=== PATIENT | male | born 1980 | race Caucasian/White ===

== ENCOUNTER → 2018-02-18 15:53 | Outpatient (CLI) | payer SELFPAY ==
[2018-02-18 17:23] LABS: Absolute Lymphocyte Count 1.87 X10^3/ul (0.83-4.51); Absolute Neutrophil Count 5.8 X10^3/uL (2.0-7.7); Basophil# 0.03 X10^3/uL; Basophil% 0.3 % (0-1); Eosinophil# 0.25 X10^3/uL; Eosinophils% 2.8 % (0-5); Hematocrit 40.3 % (40-54); Hemoglobin 13.7 g/dl (13.0-16.5); Lymphocyte # 1.87 X10^3/ul (4.0); Lymphocyte % 20.7 % (19-41); Mean Corpuscular Hgb 31.9 pg (27.0-32.0); Mean Corpuscular Volume 93.7 fL (80-94); Mean Platelet Vol. 9.2 fl (6.2-12.0); Monocyte# 1.04 X10^3/uL; Monocyte% 11.5 % (0-10); Neutrophil # 5.83 X10^3/uL (2.7-7.7); Neutrophil % 64.7 % (47-70); Platelet Count 286 K/mm3 (150-450); RBC Distribution Width CV 12.4 % (11.6-14.6)
[2018-02-18 17:28] LABS: POSITIVE COUNT NO; POSITIVE DIFFERENTIAL NO; POSITIVE MORPHOLOGY NO
[2018-02-18 17:31] LABS: AST(SGOT) 19 U/L (15-37); Alanine Aminotransfer ALT/SGPT 26 U/L (16-61); Albumin, Serum 3.9 g/dL (3.2-5.0); Alkaline Phosphatase 68 U/L (45-117); Bilirubin, Direct 0.22 mg/dL (0.00-0.30); Cholesterol 158 mg/dL (200); Globulin 3.1 g/dL (2.2-4.2); Glucose 90 mg/dL (74-106); High Density Lipoprotein 33 mg/dL; Triglycerides 133 mg/dL; Very Low Density Lipoprotein 27 mg/dL (5-40)
[2018-02-19 09:10] LABS: Anion Gap 9 (5-15); BUN 18 mg/dL (7-18); BUN/Creat Ratio 15.4 RATIO (10-20); Calcium,Total 8.5 mg/dL (8.5-10.1); Chloride 107 mmol/L (98-107); Creatinine, Serum 1.17 mg/dL (0.70-1.30); EST Glomerular Filtration Rate 75 mL/min (>60); Est Glom Filt Rate - Afr Amer 91 mL/min (>60); Potassium 3.8 mmol/L (3.5-5.1); Sodium Level 141 mmol/L (136-145)
[2018-02-20 16:11] LABS: Absolute CD4 Helper 609 /uL (359-1519); Basophils (Absolute) 0 x10E3/uL (0.0-0.2); Eosinophils 3 % (Not Estab.); Eosinophils (Absolute) 0.3 x10E3/uL (0.0-0.4); Hematocrit 41.6 % (37.5-51.0); Hemoglobin 13.8 g/dL (13.0-17.7); Immature Granulocytes 0 % (Not Estab.); Lymphs 22 % (Not Estab.); Lymphs (Absolute) 2.1 x10E3/uL (0.7-3.1); MCHC 33.2 g/dL (31.5-35.7); MCV 97 fL (79-97); Monocytes 11 % (Not Estab.); Monocytes (Absolute) 1.1 x10E3/uL (0.1-0.9); Neutrophils 64 % (Not Estab.); Neutrophils (Absolute) 6.3 x10E3/uL (1.4-7.0); Platelets 305 x10E3/uL (150-379); RBC Count 4.31 x10E6/uL (4.14-5.80); RDW 13.2 % (12.3-15.4); WBC Count 9.8 x10E3/uL (3.4-10.8)
[2018-02-21 11:20] LABS: Immature Granulocytes Absolute 0 x10E3/uL (0.0-0.1)
[2018-02-23 07:58] LABS: HIV-1 RNA by PCR, Quant. < 20 copies/mL (.)
== END ==
PROVIDERS: Family Provider Internal Medicine Infectious Disease; PCP Internal Medicine Infectious Disease; Visit Provider Internal Medicine Infectious Disease
DX: B20 Human immunodeficiency virus [HIV] disease (principal)
CPT/HCPCS: 36415; 80048; 80061; 80076; 82947; 85025; 86361; 87536

== ENCOUNTER → 2018-08-18 11:49 | Outpatient (CLI) | payer OTHER, SELFPAY ==
[2018-08-18 14:47] LABS: Hematocrit 43.2 % (40-54); Hemoglobin 14.4 g/dl (13.0-16.5); Mean Corp Hgb Conc 33.3 g/gl (32-36); Mean Corpuscular Hgb 31.8 pg (27.0-32.0); Mean Corpuscular Volume 95.4 fL (80-94); Mean Platelet Vol. 9.2 fl (6.2-12.0); Platelet Count 335 K/mm3 (150-450); RBC Distribution Width CV 12.7 % (11.6-14.6); RBC Distribution Width SD 42.9 fl (35.1-43.9); Red Blood Count 4.53 M/mm3 (4.6-6.2); White Blood Count 7.4 K/mm3 (4.4-11.0)
[2018-08-18 14:50] LABS: Scan Indicated on CBC? Y/N NO
[2018-08-18 15:43] LABS: AST(SGOT) 15 U/L (15-37); Alanine Aminotransfer ALT/SGPT 31 U/L (16-61); Albumin, Serum 4.4 g/dL (3.2-5.0); Alkaline Phosphatase 65 U/L (45-117); Anion Gap 4 (5-15); BUN 12 mg/dL (7-18); Bilirubin, Direct 0.19 mg/dL (0.00-0.30); Calcium,Total 8.9 mg/dL (8.5-10.1); Chloride 107 mmol/L (98-107); EST Glomerular Filtration Rate 90 mL/min (>60); Est Glom Filt Rate - Afr Amer 108 mL/min (>60); Globulin 3.6 g/dL (2.2-4.2); Glucose 88 mg/dL (74-106); Potassium 4.1 mmol/L (3.5-5.1); Sodium Level 140 mmol/L (136-145)
[2018-08-19 16:10] LABS: Absolute CD4 Helper 643 /uL (359-1519); Basophils (Absolute) 0 x10E3/uL (0.0-0.2); Eosinophils 2 % (Not Estab.); Eosinophils (Absolute) 0.2 x10E3/uL (0.0-0.4); Hematocrit 41.2 % (37.5-51.0); Hemoglobin 14.8 g/dL (13.0-17.7); Immature Granulocytes 0 % (Not Estab.); Immature Granulocytes Absolute 0 x10E3/uL (0.0-0.1); Lymphs 28 % (Not Estab.); Lymphs (Absolute) 2.4 x10E3/uL (0.7-3.1); MCH 32.5 pg (26.6-33.0); MCHC 35.9 g/dL (31.5-35.7); MCV 90 fL (79-97); Monocytes 12 % (Not Estab.); Neutrophils 57 % (Not Estab.); Neutrophils (Absolute) 4.8 x10E3/uL (1.4-7.0); Percent % CD4 Pos. Lymph. 26.8 % (30.8-58.5); Platelets 344 x10E3/uL (150-379); RBC Count 4.56 x10E6/uL (4.14-5.80); RDW 13.8 % (12.3-15.4); WBC Count 8.4 x10E3/uL (3.4-10.8)
[2018-08-19 16:29] LABS: Hep C Antibodies <0.1 s/co ratio (0.0-0.9)
[2018-08-20 12:42] LABS: HIV-1 RNA by PCR, Quant. < 20 copies/mL (.)
[2018-08-26 13:58] LABS: Rapid Plasmin Reagin (RPR) REACTIVE (NONREACTIVE)
== END ==
PROVIDERS: Family Provider Internal Medicine Infectious Disease; PCP Internal Medicine Infectious Disease; Referring Provider Internal Medicine Infectious Disease; Visit Provider Internal Medicine Infectious Disease
DX: B20 Human immunodeficiency virus [HIV] disease (principal)
CPT/HCPCS: 36415; 80048; 80076; 85027; 86361; 86592; 86803; 87536

== ENCOUNTER → 2018-09-08 13:44 | Outpatient (CLI) | payer OTHER, SELFPAY ==
[2018-09-08 13:59] LABS: Bacteria 0 SEEN /hpf (None Seen); Mucous, Urine 0 SEEN /hpf (<or=2+); Red Blood Cells-Urine 0 SEEN /hpf (0-5); Squamous Epithelial Cells - UA 0 SEEN /hpf (0-5); White Blood Cells 0 SEEN /hpf (0-5)
[2018-09-08 16:00] LABS: Color, Urine Yellow (Yellow); Glucose, Dipstick Normal (Normal); Ketone-Dipstick Negative (Negative); Leukocyte Esterase-Dipstick Negative /ul (Negative); Nitrite-Dipstick Negative (Negative); Occult Blood-Urine Negative /ul (Negative); Protein-Dipstick Negative (Negative); Specific Gravity, Urine 1.005 (1.002-1.030); Urine Bilirubin Dipstick Negative (Negative); Urine Clarity Clear (Clear); Urine Urobilinogen Normal (Normal); Urine pH 6.5 (5.0 - 8.0)
[2018-09-08 17:25] LABS: Chlamydia Trachomatis by PCR Negative (Negative); Neisserai gonorrhoeae by PCR Negative (Negative); Probe Check PASS; Sample Adequacy Control PASS; Specimen Processing Control PASS
[2018-09-10 10:17] LABS: Hep B Surface Antibodies Non Reactive (.)
[2018-09-12 01:31] LABS: Rapid Plasmin Reagin (RPR) NONREACTIVE (NONREACTIVE)
== END ==
PROVIDERS: Family Provider Internal Medicine Infectious Disease; PCP Internal Medicine Infectious Disease; Referring Provider Internal Medicine Infectious Disease; Visit Provider Internal Medicine Infectious Disease
DX: B20 Human immunodeficiency virus [HIV] disease (principal)
CPT/HCPCS: 36415; 81001; 86592; 86706; 87491; 87591

== ENCOUNTER → 2019-02-17 14:40 | Outpatient (CLI) | payer OTHER, SELFPAY ==
[2019-02-17 15:22] LABS: Hematocrit 39.5 % (40-54); Hemoglobin 13.3 g/dL (13.0-16.5); Mean Corp Hgb Conc 33.7 g/dL (32-36); Mean Corpuscular Volume 95.2 fL (80-94); Mean Platelet Vol. 8.4 fl (6.2-12.0); Platelet Count 361 K/mm3 (150-450); RBC Distribution Width CV 11.9 % (11.6-14.6); RBC Distribution Width SD 42.1 fl (35.1-43.9); Red Blood Count 4.15 M/mm3 (4.6-6.2); White Blood Count 8.1 K/mm3 (4.4-11.0)
[2019-02-17 15:42] LABS: AST(SGOT) 13 U/L (15-37); Alanine Aminotransfer ALT/SGPT 24 U/L (16-61); Alkaline Phosphatase 68 U/L (45-117); Anion Gap 6 (5-15); BUN 19 mg/dL (7-18); BUN/Creat Ratio 18.6 RATIO (10-20); Bilirubin, Direct 0.14 mg/dL (0.00-0.30); Calcium,Total 8.4 mg/dL (8.5-10.1); Chloride 106 mmol/L (98-107); Cholesterol 167 mg/dL (200); Creatinine, Serum 1.02 mg/dL (0.70-1.30); EST Glomerular Filtration Rate 87 mL/min (>60); Est Glom Filt Rate - Afr Amer 105 mL/min (>60); Glucose 94 mg/dL (74-106); High Density Lipoprotein 49 mg/dL; Sodium Level 139 mmol/L (136-145); Triglycerides 102 mg/dL; Very Low Density Lipoprotein 20 mg/dL (5-40)
[2019-02-18 14:08] LABS: Absolute CD4 Helper 728 /uL (359-1519); Basophils (Absolute) 0 x10E3/uL (0.0-0.2); Eosinophils 3 % (Not Estab.); Eosinophils (Absolute) 0.3 x10E3/uL (0.0-0.4); Hematocrit 37.4 % (37.5-51.0); Hemoglobin 13.2 g/dL (13.0-17.7); Immature Granulocytes 0 % (Not Estab.); Lymphs 27 % (Not Estab.); Lymphs (Absolute) 2.2 x10E3/uL (0.7-3.1); MCH 31.7 pg (26.6-33.0); MCHC 35.3 g/dL (31.5-35.7); MCV 90 fL (79-97); Monocytes 10 % (Not Estab.); Monocytes (Absolute) 0.8 x10E3/uL (0.1-0.9); Neutrophils 60 % (Not Estab.); Neutrophils (Absolute) 4.8 x10E3/uL (1.4-7.0); Percent % CD4 Pos. Lymph. 33.1 % (30.8-58.5); Platelets 389 x10E3/uL (150-450); RBC Count 4.17 x10E6/uL (4.14-5.80)
[2019-02-18 15:02] LABS: Immature Granulocytes Absolute 0 x10E3/uL (0.0-0.1)
[2019-02-20 01:35] LABS: Rapid Plasmin Reagin (RPR) REACTIVE (NONREACTIVE)
[2019-02-20 13:28] LABS: HIV-1 RNA by PCR, Quant. < 20 copies/mL (.)
== END ==
PROVIDERS: Family Provider Internal Medicine Infectious Disease; PCP Internal Medicine Infectious Disease; Referring Provider Internal Medicine Infectious Disease; Visit Provider Internal Medicine Infectious Disease
DX: B20 Human immunodeficiency virus [HIV] disease (principal)
CPT/HCPCS: 36415; 80048; 80061; 80076; 85027; 86361; 86592; 87536

== ENCOUNTER → 2019-08-17 | Outpatient (CLI) | payer OTHER, SELFPAY ==
[2019-08-17 16:33] LABS: Hematocrit 40.7 % (40-54); Hemoglobin 13.5 g/dL (13.0-16.5); Mean Corp Hgb Conc 33.2 g/dL (32-36); Mean Corpuscular Hgb 32.1 pg (27.0-32.0); Mean Corpuscular Volume 96.9 fL (80-94); Mean Platelet Vol. 8.4 fl (6.2-12.0); Platelet Count 412 K/mm3 (150-450); RBC Distribution Width CV 12.4 % (11.6-14.6); White Blood Count 8.4 K/mm3 (4.4-11.0)
[2019-08-17 17:05] LABS: Anion Gap 3 (5-15); BUN 19 mg/dL (7-18); BUN/Creat Ratio 18.8 RATIO (10-20); Chloride 107 mmol/L (98-107); Creatinine, Serum 1.01 mg/dL (0.70-1.30); EST Glomerular Filtration Rate 88 mL/min (>60); Est Glom Filt Rate - Afr Amer 106 mL/min (>60); Glucose 90 mg/dL (74-106); Potassium 4.2 mmol/L (3.5-5.1); Sodium Level 142 mmol/L (136-145)
[2019-08-17 19:36] LABS: Chlamydia Trachomatis by PCR Negative (Negative); Neisserai gonorrhoeae by PCR Negative (Negative); Probe Check PASS; Sample Adequacy Control PASS; Specimen Processing Control PASS
[2019-08-19 14:55] LABS: Absolute CD4 Helper 534 /uL (359-1519); Basophils (Absolute) 0 x10E3/uL (0.0-0.2); CD4/CD8 Ratio 0.94 (0.92-3.72); Eosinophils 4 % (Not Estab.); Eosinophils (Absolute) 0.3 x10E3/uL (0.0-0.4); Hematocrit 41.4 % (37.5-51.0); Hemoglobin 13.7 g/dL (13.0-17.7); Immature Granulocytes 0 % (Not Estab.); Lymphs 20 % (Not Estab.); Lymphs (Absolute) 1.6 x10E3/uL (0.7-3.1); MCH 32.3 pg (26.6-33.0); MCHC 33.1 g/dL (31.5-35.7); MCV 98 fL (79-97); Monocytes 9 % (Not Estab.); Monocytes (Absolute) 0.7 x10E3/uL (0.1-0.9); Neutrophils 66 % (Not Estab.); Neutrophils (Absolute) 5.3 x10E3/uL (1.4-7.0); Percent % CD4 Pos. Lymph. 33.4 % (30.8-58.5); Percent % CD8 Pos. Lymph. 35.6 % (12.0-35.5); Platelets 457 x10E3/uL (150-450); RBC Count 4.24 x10E6/uL (4.14-5.80); RDW 13.4 % (11.6-15.4)
[2019-08-19 16:53] LABS: Immature Granulocytes Absolute 0 x10E3/uL (0.0-0.1)
[2019-08-21 11:15] LABS: HIV-1 RNA by PCR, Quant. < 20 copies/mL (.)
== END | disposition home or self-care (01) ==
LOC: LAB 15:35
PROVIDERS: PCP Internal Medicine Infectious Disease; Referring Provider Internal Medicine Infectious Disease; Visit Provider Internal Medicine Infectious Disease
DX: B20 Human immunodeficiency virus [HIV] disease (principal)
CPT/HCPCS: 36415; 80048; 85027; 86360; 87491; 87536; 87591

== ENCOUNTER 2019-09-16 07:56 | Emergency (ER) | payer OTHER, SELFPAY ==
[2019-09-16] VITALS (8 sets, daily range): BP systolic 110–123; BP diastolic 76–79; PULSE 64–74; RESP 14–16; TEMP 36.4–37.2; O2SAT 97–100; BMI 22.3
--- NOTE | 2019-09-16 08:18 | ED.DCSUM_ITS ---
- ER Visit Summary Date of Service: 09/16/19 Chief Complaint: Suicidal ideation History of Present Illness: The patient is a 39 M with suicidal ideation. He was brought in by police. He left a suicide note for his . Per police, the said they had been dealing with some marital difficulties, but the patient is refusing to get help. Patient says he feels depressed. He drank a bottle of wine and took 2 Benadryl yesterday. No other attempts to harm himself. He has a history of HIV, but no history of AIDS. His CD4 count is normal and his viral load is undetectable. He is compliant with his medical therapy. He denies any other medical complaints or ongoing issues. Physical Examination: Afebrile and vital signs unremarkable. Depressed mood and flat affect. Tearful. HEENT exam unremarkable. Heart regular. Lungs clear. Abdomen soft. Skin normal. Test Results: CBC, CMP, tox screen, alcohol, acetaminophen, salicylates pending. Emergency Department Course and Treatment: Patient had suicide precautions. [place] slip was completed by police. Will check screening labs and consult with crisis counseling. CBC unremarkable. CMP shows a total bilirubin of 1.1. His normal ranges from 0.7-1.0. Acetaminophen and salicylates are negative. Tox screen is positive for opiates only. Alcohol is negative. Patient is medically cleared and stable for psychiatric care and transfer. Treatment Plan: As above Disposition: Pending crisis evaluation Impression: Suicidal ideation This note was generated with [employer] dictation software. It may contain incorrect words, spelling, and punctuation that were not noted in review of the chart prior to signing ED Disposition - Plan for ED Patient: Referrals: Isidro Koenig MD [Primary Care Provider] -
--- NOTE | 2019-09-16 08:31 | ED.RN ---
pt tearful but cooperative.
[2019-09-16 09:11] LABS: Absolute Lymphocyte Count 1.73 X10^3/uL (0.83-4.51); Absolute Neutrophil Count 3.9 X10^3/uL (2.0-7.7); Basophil# 0.06 X10^3/uL; Basophil% 0.9 % (0-1); Eosinophil# 0.21 X10^3/uL; Eosinophils% 3.1 % (0-5); Hematocrit 41.3 % (40-54); Hemoglobin 13.8 g/dL (13.0-16.5); Lymphocyte # 1.73 X10^3/ul (4.0); Lymphocyte % 25.9 % (19-41); Mean Corp Hgb Conc 33.4 g/dL (32-36); Mean Corpuscular Hgb 32.2 pg (27.0-32.0); Mean Corpuscular Volume 96.3 fL (80-94); Mean Platelet Vol. 8.4 fl (6.2-12.0); Monocyte# 0.75 X10^3/uL; Monocyte% 11.2 % (0-10); NRBC Flagged by Analyzer 0 % (0-5); Neutrophil # 3.91 X10^3/uL (2.7-7.7); Neutrophil % 58.6 % (47-70); Platelet Count 405 K/mm3 (150-450); RBC Distribution Width SD 42.2 fl (35.1-43.9); Red Blood Count 4.29 M/mm3 (4.6-6.2); White Blood Count 6.7 K/mm3 (4.4-11.0)
[2019-09-16 09:27] LABS: ALB/GLOB Ratio 1.2 RATIO (0.9-2.4); AST(SGOT) 13 U/L (15-37); Alanine Aminotransfer ALT/SGPT 20 U/L (16-61); Alkaline Phosphatase 66 U/L (45-117); Anion Gap 4 (5-15); BUN 15 mg/dL (7-18); BUN/Creat Ratio 15.1 RATIO (10-20); Calcium,Total 8.6 mg/dL (8.5-10.1); Chloride 107 mmol/L (98-107); Creatinine, Serum 0.99 mg/dL (0.70-1.30); EST Glomerular Filtration Rate 90 mL/min (>60); Est Glom Filt Rate - Afr Amer 108 mL/min (>60); Estimated Creatinine Clearance 103.85 ml/min; Globulin 3.3 g/dL (2.2-4.2); Glucose 96 mg/dL (74-106); Potassium 3.9 mmol/L (3.5-5.1); Protein, Total 7.3 g/dL (6.4-8.2); Sodium Level 141 mmol/L (136-145)
[2019-09-16 09:47] LABS: Acetaminophen (Tylenol) Level < 2.0 ug/mL (10.0-30.0); Alcohol, Blood (Medical)-Serum < 3.0 mg/dL; Salicylate < 1.7 mg/dL (2.8-20.0)
[2019-09-16 09:53] LABS: Amphetamine Urine VISTA NEGATIVE (<1000 ng/mL); Barbiturate Urine VISTA NEGATIVE (< 200 ng/mL); Benzodiazepine Urine VISTA NEGATIVE (< 200 ng/mL); Cocaine Urine VISTA NEGATIVE (< 300 ng/mL); Ecstacy Urine VISTA NEGATIVE (< 500 ng/mL); Methadone Urine VISTA NEGATIVE (< 300 ng/mL); PCP Urine VISTA NEGATIVE (< 25 ng/mL); THC Urine VISTA NEGATIVE (< 50 ng/mL); Vista UDS pH Range 7
--- NOTE | 2019-09-16 13:25 | CM.ED ---
Social Work Consult: Suicidal Informant: Dr. Dugan Chief Complaint: Patient stating I don't want to be here. This rn social services clarifying that here is no longer living. Patient was pink slipped to the [facility] ED by Lyssa MCDANIEL. Marital/Social History: to Abhay for the past three years. Patient originally born and raised in [facility] and lived in [place] from [id number]. Patient moved to [place] after meeting Abhay on-line in 2016. Living Situation: Currently living with Abhay. Support/Resource: Limited. Education and Employment History: Completed collage in [place]. No concerns with comprehension or understanding. 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 Mental Health Treatment/History: Patient stating to have a history of depression. Patient with a history of medication and counseling to managing mental health treatment, patient is currently not in any counseling and not taking any medication. Patient denies any history of inpatient psychiatric placement. Triggers/Stressors: Patient stating that patient spouse, Abhay recently told patient about 3 weeks ago that Abhay will be working towards patient. Patient stating to care for Abhay and want things to work out. Patient stating to not be sure if the divorce process has started. Coping Skills: Patient stating to use to enjoy coloring. Abuse Issues: Denies Substance Abuse: Denies Risk to Self/Others: Patient stating to have had suicidal thoughts for the pasta few days and to have acted on patient suicidal thought last night by taking some Benadryl and drinking a few glasses of wine. Patient also completed a suicide note in which patient informed Abhay that I am making things easier on everyone. Patient denies any homicidal thoughts or history of suicide attempts. Mental Status Exam: A&Ox3 Appearance/General Behavior: Disheveled. Mood/Affect: Tearful. Depressed. Communication Pattern: Responds to questions. Thought Process: Denies any hallucinations or delusions. General Intellectual Functioning: Average. Judgement: Poor. Assessment: Met with patient in room. Introduced self as well as rn social services role. Patient stating it has been rough. Patient tearful when speaking with this rn social services. Patient stating to have no family or friends in the states outside of spouse, Abhay. Patient stating to speak with family from home in [facility] once a week. Patient is agreeable to this rn social services speaking with patient spouse. Met with Abhay. Abhay stating that patient has been presenting with mood swings and is easily agitated. Abhay stating to not know what to do. Abhay is also tearful and stating I do care about him. Abhay stating that patient was planning to return to home on [place] and to not be sure what patient plans are in this regards. Abhay stating he needs help. Abhay stating to have called the police when Abhay found patient acting odd and the suicide note. Collaborating with Dr. Dugan. Recommending inpatient psychiatric placement. PLAN: Facilitate transfer to an inpatient psychiatric placement. Lesvia RICE, TIGIST.
--- NOTE | 2019-09-16 14:23 | CM.ED ---
Social Work Telephone call to [facility]. Referral made. There are open beds. Clinical information faxed. Pending approval. Lesvia RICE, TIGIST
--- NOTE | 2019-09-16 16:15 | CM.ED ---
Social Work Telephone call from [facility]. Octavia wondering if patient would be able to bring home HIV medications. Speaking with patient in room, patient stating to not have HIV medication with patient at this time. Patient agreeable to this social science manager calling patient spouse, Abhay Telephone call to Abhay Blank stating to be able to bring in medication. Updated medical team. Lesvia Gregg MSW, TIGIST
--- NOTE | 2019-09-16 16:17 | CM.ED ---
Social Work Telephone call to [facility]. Confirming that patient significant other is bringing in medication. Octavia stating to be able to accept patient. Accepting Doctor: Dr. Clark. Patient accepted to the [address]. Nurse to call report to: [phone]. Updated medical team and patient. Patient spouse updated on discharge location for patient. [place] [facility] faxed to [facility]. Lesvia Gregg MSW, TIGIST
--- NOTE | 2019-09-17 11:44 | CM.ED ---
SOCIAL WORK RECEIVED CALL FROM PATIENT'S SPOUSE REQUESTING UPDATE ON PATIENT. REVIEWED NOTES. SPOUSE UPDATED PATIENT DISCHARGED TO [facility]. SPOUSE PROVIDED WITH CONTACT INFORMATION FOR FACILITY. Nimco THEODORE MSW, REGISTERED NURSE BONE MARROW TRANSPLANT.
== END 2019-09-16 17:51 ==
LOC: ED 08:49
PROVIDERS: Emergency Provider Emergency Medicine; PCP Internal Medicine Infectious Disease
DX: R45.851 Suicidal ideations (principal); Z21 Asymptomatic human immunodeficiency virus [HIV] infection status; Z79.899 Other long term (current) drug therapy
CPT/HCPCS: 80053; 80307; 80320; 80329; 85025; 99284; G0480

== ENCOUNTER 2019-09-28 09:00 | Outpatient (RCR) | payer OTHER, SELFPAY ==
[2019-09-16 07:57] VITALS: BMI 22.3
--- NOTE | 2019-09-28 09:05 | BH.SGPN.GN ---
Behaviors/Verbalizations/Mental Status: []Eye contact is good. Motor activity is appropriate. Appearance is neat. Speech is Appropriate. Mood is euthymic and anxious. Affect is congruent. Thoughts are linear and logical. No evidence of psychosis. Reviewed daily check in sheet and no reports of suicidal ideations or intent. Client Response/Progress/Benefit: []Client responded well to session, receptive to supportive statements. Client reports feeling relaxed today. Client's first day in IOP tx and client shared that he came to IOP following a recent hospitalization. Client reported numerous stressors including from his , being laid off work, and COVID-19. Client shared he is hopeful about being in IOP and wants to learn healthy coping skills to manage anxiety, anger, and depression. Client stated he has been feeling down and wants to better manage stress in his life. 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 Will continue IOP tx to prevent decompensation, learn healthy coping skills, and reduce intensity and duration of symptoms. Narrative Note: []
--- NOTE | 2019-09-28 10:08 | BH.SGPN.GN ---
Behaviors/Verbalizations/Mental Status: []Client alert and oriented, casually dressed and groomed, neat. Eye contact good. Motor activity appropriate. Speech within normal limits. Affect congruent, mood anxious and dysthymic. Thoughts linear, logical, no signs of hallucinations or delusions. Client Response/Progress/Benefit: []Pt receptive to session, participating throughout. Provided input as the group brainstormed the positive and negative aspects of stress on physical and mental health. Group noted that distress can cause physical health impacts, result in increased negative thinking, lead to further avoidance, and impact emotion regulation. Shared benefits of stress as: increased motivation, improved resilience, improved self-esteem, and personal growth. Client?s current stressors included; work, the end of his relationship, his mental health, finances, and the current COVID-19 pandemic. Client reports belief that his stress jar is torres than it needs to be due to client struggling with unnecessary or preventable stressors. Client stated when stress is too high client will become irritable or more depressed. Appeared to benefit from gaining awareness of own current stressors and learning about the impact stress has on overall wellbeing. Progress noted as shown by client?s increased engagement in group. Recommend continued IOP tx to promote use of healthy coping skills, maintain stability, and to further reduce mental health symptoms. Narrative Note: []
--- NOTE | 2019-09-28 11:10 | BH.SGPN.GN ---
Behaviors/Verbalizations/Mental Status: []Client alert and oriented, casually dressed and groomed. Eye contact good. Motor activity appropriate. Speech within normal limits. Affect constricted, mood dysthymic. Thoughts linear, logical, no signs of hallucinations or delusions. Client Response/Progress/Benefit: []Pt engaged participant in session as evidenced by pt listening attentively to others and providing input throughout session. Pt reported he currently dylon with stress by keeping himself busy, coming to IOP, spending time with a friend, and overeating. Pt identified sometimes the way he dylon with stress can increase depression, decrease energy, and have low motivation. Pt actively listening during discussion about the 4 A's of managing stress. Pt identified he will work on accepting that is marriage is over and focus on the potential positives that will occur after divorce. Pt seemed to benefit from increased awareness of the impact of stress on mental health and increasing repertoire of stress management strategies. Pt to continue in IOP to prevent decompensation, increase healthy coping skills, and challenge distorted thoughts. Narrative Note: []
--- NOTE | 2019-09-29 09:08 | BH.SGPN.GN ---
Behaviors/Verbalizations/Mental Status: []Client alert and oriented, casual dress, hygiene tended to. Eye contact good. Motor activity appropriate. Speech within normal limits. Affect congruent, mood euthymic. Thoughts linear, logical, no signs of hallucinations or delusions. Reviewed client?s symptom tracker, no signs of suicidal ideation, plan, or intent as of today. Client Response/Progress/Benefit: []Pt responded well to session AEB pt openly sharing thoughts and feelings and listened attentively to peers. Pt reported a mental health positive was being able to manage his emotions yesterday when feeling frustrated with his soon to be ex-. Pt stated in the past when frustrated with his pt would yell and sometimes throw things. Pt reported his current stressor is having to live with his soon to be ex- until travel restrictions are lifted due to coronavirus pandemic. Pt stated he recognizes he needs to identify strategies to manage emotions with while isolated together. Pt seemed to benefit from support from peers. Pt to continue IOP level of care to increase healthy coping, challenge negative thoughts and prevent decompensation. Narrative Note: []
--- NOTE | 2019-09-29 10:15 | BH.SGPN.GN ---
Behaviors/Verbalizations/Mental Status: []Client alert and oriented, casually dressed and groomed. Eye contact good. Motor activity appropriate. Speech within normal limits. Affect congruent, mood anxious. Thoughts linear, logical, no signs of hallucinations or delusions. Client Response/Progress/Benefit: []Pt active participant AEB contribution to discussion and attentiveness throughout. Pt shared connecting to group topic of self-care and discussed that he has struggled in this area in the past. Pt helped the group discuss benefits of self-care. Shared that self-care helps him to feel more confident. Benefits included; improved happiness and mood, maintaining stability, less stress, increased organization and productivity, and improved self-confidence. Pt participated in the discussion of the common myths about self-care including self-care is selfish, requires money, too much effort and time, and is self-indulgent. Client participated in the discussion on debunking of these myths. Client expressed connecting with myth of self-care requires money. He seemed to benefit from increased awareness of the importance of self-care and challenging common myths that prevent practicing self-care. Discussed at times struggling to remember to engage in the more difficult aspects of self-care such as boundaries. Noted that this has led to disorganization and being unable to manage daily stressors in the past. Client showing progress in improved engagement. Will continue IOP tx to promote gains and to further decrease depression, improve mental health sx management, as well as prevent decompensation. Narrative Note: []
--- NOTE | 2019-09-29 11:15 | BH.SGPN.GN ---
Behaviors/Verbalizations/Mental Status: []Client alert and oriented, casually dressed and groomed. Eye contact good. Motor activity appropriate. Speech within normal limits. Affect congruent, mood euthymic and anxious. Thoughts linear, logical, no signs of hallucinations or delusions. Client Response/Progress/Benefit: []Client receptive of session, engaged and contributing to discussion. Participated in further debunking myths about self-care and reinforcing the benefits of practicing consistent self-care. Client reported he is able to recognize that self-care is not selfish and it can help prevent major setbacks. Willing to complete worksheet activity and helped the group identify various types of self-care activities. Client completed self-assessment activity on the different areas of self-care and was able to identify current practices he uses and identify areas he can improve upon. Client reported he can improve his physical and emotional self-care areas. Expressed that he would like to try and be more active. Client shared he has weights at home that he could use to exercise. Client also wants to work on his emotional self-care by spending time during coloring throughout the week. Client stated this would help him relax and calm down. Client appeared to benefit from increasing awareness of how he can improve self-care balance. Client's second day of IOP tx. Will continue IOP tx to increase healthy coping skills, reduce intensity and duration of symptoms, and improve daily functioning. Narrative Note: []
--- NOTE | 2019-09-29 12:34 | BH.PSA_ITS ---
Source of Information - Presenting Problems/Circumstances Problems, Referral Source, Mental Status, Client: Client is a 39-year-old male with a history of depression and anxiety. Client was recently admitted to [facility] from 09/16/19-09/21/19 due to a suicide attempt. Client reported he took two Benadryl with a glass of wine. Client also left a suicide note for his , which his found the next morning and called 911. Client described the attempt as silly, I just wanted to make my feel s omething. I don't think I really wanted to . Client's discharge notes from [facility] indicated opiate use on their tox screen, but client denies any opiate use. Client's primary stressors include marriage issues and lack of support. Client was born and raised in [place] and he moved to [facility] two years ago. Client continues to report difficulty adjusting which causes depression and anxiety. Client reports erratic moods, anxiety, feeling lost, and angry. Client's symptoms are currently impacting his occupational, social, and familial functioning. Cooperative and attentive during assessment. Eye contact good, neatly dressed and groomed. Motor activity appropriate, speech within normal limits. Thoughts linear, logical. No signs of hallucinations or delusions. Affect congruent, mood euthymic. Psychiatric Presentation - Psych Issues & Need for Admission Psychiatric Issues:: Major depressive disorder recurrent severe without psychosis F33.2; history of opiate use disorder Past Psychiatric History - Treatment Hx Treatment History: Client has a history of only one psych admit in September 2019 as noted above. Client has no prior suicide attempts and he reports that this last attempt was silly and shared I don't think I wanted to , I just wanted my to notice. Client has a history of depression for about the past year. Client also had an episode of depression in 2013 which occurred one year after moving from [place] to [place] all by himself. Client had financial and primary support stressors at that time. Client reported he took an antidepressant and it did help him and he took it for one year, but he does not remember the name of this medication. Client denies any depression prior to 2013 or any other psychiatric problems. Client saw a counselor for his depression in 2013 and client reports he did improve. No current mental health providers. First hospitalization:: [facility] from September 15- September 21, 2019 Most recent hospitalization:: [facility] from September 15-September 21 2019 Medication Trials:: Yes ECT Therapy:: No Age of first mental health symptoms: Client reported he first started experiencing depressive symptoms in 2013 at age 33. Client denies any mental health symptoms prior to this. Describe (age, circumstance, etc) any past hospitalizations: Client hospitalized this year at age 39 due to depression and suicide attempt. Client reports at the time he and his were having problems and he wanted to get his 's attention. Current providers for mental health treatment (counselor, psychiatrist, oil field caser, etc.): Client currently has no mental health providers. Development & Family of Origin - Childhood Significant Childhood Events: Describes childhood as normal. Parents took care of them. Saw and heard them fighting occasionally. Soria with grandma, describes himself as malissa's little son. - Family Who currently lives in your home?: Lives with in [place] with their dog Describe family composition:: Mom and Dad are 62 and live in [place]. Grandmother is 87. Older sister 4 years older with a daughter who is 8 years old. Talks once a week with parents. Group chat with family. Good relationship with his neice. Client reports his family is not accepting that client is kuo, but they still have a relationship. - Family History Family Hx of Psychiatric or AOD Problems: Client's father has a history of alcoholism. Ethnicity - Culture Do you identify yourself with any particular cultural, ethnic background, or community?: Yes - Client was born and raised in [place] - Sexuality Sexual Orientation: Homosexual Spirituality - Mandaen Do you currently identify with any organized gnosticism?: None - Beliefs Is there a particular form of support from this community you can use for your recovery?: No Mental Status - Memory Recent Memory: Good Remote Memory: Good - Concentration Concentration: Good - Eye Contact Eye Contact: Good - Speech Speech: Articulate - Thought Process Thought Process: Logical Insight: Fair Judgment: Fair Behavior: Calm - Orientation Orientation: Time, Person, Place, Situation - Appearance Appearance: Neat/clean - Mood Mood: Happy - Affect Affect: Alert Suicide Assessment - Suicidal Ideation Have you ever felt like hurting yourself?: Yes Please explain:: Client took 2 Benadryl with a lot of wine and left a suicide note which his found the next morning. His called 911 and the patient was taken to the ER and admitted to the psych unit. Were you using ETOH/drugs at the time?: Yes Suicidal Intentional Rating Scale (SIRS): Suicidal thoughts (past) - No previous suicidal thoughts and none since the day he attempted. Physician Notification: If Active suicidal thoughts/Will not contract for safety is checked, contact physician and document in the Physician Notification section below. Violent Behavior/Abuse History - Homicidal Ideation Do you have any homicidal thoughts? If so, explain:: No Is there a known potential victim? If yes, who:: No - Abuse Have you ever been abused?: No - Life Events Are there any other significant life events?: Hardships - Martial issues, immigrant and missing his home country and culture, currently unemployed, lack of support, and HIV positive. - Safety Do you ever feel threatened in your home? If yes, describe:: No Adult Social History - Age 19 to Present Describe your current support system:: Friends in [place] and family in [place]. Friend Rolo from [place]. Client reports his family is not supportive of client being kuo, but still has a relationship with them. Substance Use - Substance Substance Use Type: Alcohol - average drinks two glasses of wine each week. Now he tries not to drink because of his new med., Methamphetamine - Specific Drugs What specific drugs have you used?: Client is a non-smoker. Client drinks wine on a weekly basis. No marijuana use currently, client reported he tried it but did not like it. Client denies any opiate or benzodiazepine use ever, however the hospital records indicate that a tox screen was positive for opiates. Client first used methamphetamine in 2013 socially in [place] with friends and client used it about once a week for a few months only. - IV Substance Use Do you have a history of IV use?: denies Leisure/Social Activities - Interests What do you enjoy or might be interested in learning about?: exercising, planes and wanted to be a preflight mechanic, loves flying, baking occasionally, reading, Education & Occupational Histo - Education What is your level of education?: Bachelor Degree - Tourism and [employer] management 4 year degree. 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 Service - Service Have you ever been in the ?: No Legal History - Records Have you had any past legal charges?: No Do you have any current legal charges?: No Have you ever been incarcerated? If yes, describe:: No - Court Orders Have you had any past court orders for psychiatric treatment?: No Do you have a present court order for psychiatric treatment?: No Problem Checklist - Current Problem Areas Problem List: Depressed mood/sad - Sadness, suicidal ideation, fatigue, and anhedonia, Anxiety - ruminations about the future and marriage, restlessness, and difficulty concentrating at times., Anger/aggression - reports increased irritability and anger, especially towards ., Substance use - history of mehtamphetamine use in 2014 and tox screen from inpatient hospitalization was positive for opiates., Pertinent health issues - Client is HIV positive, Additional psychosocial stressors - marital issues, currently unable to work, reports missing his home country and culture, and limited social supports in the area. Baccarat Manager's Assessment - Client's Needs What are the client's feelings about the program?: Client reports he enjoys the program so far and likes the support he gets from staff and peers here. What are the client's goals?: Client shared he wants to work on managing stress, reducing anxiety, and reducing anger. What are the client's strengths?: Client presents as kind, outgoing, and motivated for treatment. Client identified his personal strengths as being persistent, hardworking, fun to be around, and entertaining. Client is receptive to learning new coping skills and bettering his mental health. Client has a friend from the area that is a support and client reports his friends from [place] and his family are supportive as well. Diagnoses - Diagnoses Diagnosis #1:: Major depressive disorder recurrent severe without psychosis F33.2 Diagnosis #2:: history of opiate use disorder Interpretive Summary - Interpretive Summary Interpretive Summary: Client is a 39-year-old male with a history of depression and anxiety. Client was recently admitted to [facility] from 09/16/19- 09/21/19 due to a suicide attempt. Client reported he took two Benadryl with a glass of wine. Client also left a suicide note for his , which his found the next morning and called 911. Client described the attempt as silly, I just wanted to make my feel something. I don't think I really wanted to . Prior to client's suicide attempt, his reported wanting a divorce. [facility]'s discharge notes from [facility] indicated opiate use on their tox screen, but client denies any opiate use. client does have a history of methamphetamine use in 2014, but denies any current use. Client's father has a history of alcoholism. Client denies any family history of mental health. Client denies any history of abuse. Client's primary stressors include marriage issues and lack of support. Client is HIV positive and takes medication for this. Client was born and raised in [place] and he moved to [facility] two years ago. Client reported one previous episode in 2013 when client moved from [place] to [place]. Client stated belief he has had trouble with adjusting since moving away from [place] which causes depression and anxiety. Client reports erratic moods, anxiety, feeling lost, and angry. Client's symptoms are currently impacting his occupational, social, and familial functioning. Treatment Plan Recommendations - Recommendations Guidelines: Special needs identified to be included in the development of an individualized treatment plan regarding past psychiatric history and treatment, developmental events, family relationships/events/culture, past and/or current educational, occupational, social, and residential experience, and legal status. Recommendations:: Client will continue behavioral health IOP program at [facility] as the structure, support, education, group and individual therapy will hopefully prevent worsening of symptoms which might require hospitalization. Client and IOP psychiatrist discussed medication options and side effects. Client will continue on the same dose of Zyprexa. Other recommendations were given, but client declined at this time. Client felt safe during the assessment.
--- NOTE | 2019-09-29 14:07 | BH.MTP ---
Master Treatment Plan - Patient Information Program Physician:: Dr. Aviva Cervantes Primary Therapist:: Darcie Lewis - Psychiatric Diagnoses Psychiatric Diagnoses:: Major depressive disorder recurrent severe without psychosis F33.2; history of opiate use disorder Diagnosis Code(s):: F33.2 - Estimated LOS Estimated LOS (in weeks):: 6 Problem/Goal #1 - Problem/Goal #1 Stated Goal:: Client will reduce depressive symptoms, feelings of being lost, and fatigue while increasing social supports. Description of Barriers: Client reports limited supports in [place] outside of his and friend. Client shared he has had a hard time adjusting since moving to [facility] two years ago. Client stated he feels lost and misses the culture [place]. Client has numerous stressors in his life right now including; going through a divorce, financial stress, and work. Functional Impact: Client is a 39-year-old male with a history of depression and anxiety. Client was recently admitted to [facility] from 09/16/19-09/21/19 due to a suicide attempt. Client reported he took two Benadryl with a glass of wine. Client also left a suicide note for his , which his found the next morning and called 911. Client described the attempt as silly, I just wanted to make my feel something. I don't think I really wanted to . Client's discharge notes from [facility] indicated opiate use on their tox screen, but client denies any opiate use. Client's primary stressors include marriage issues and lack of support. Client was born and raised in [place] and he moved to [facility] two years ago. Client continues to report difficulty adjusting which causes depression and anxiety. Client reports erratic moods, anxiety, feeling lost, and angry. Client's symptoms are currently impacting his occupational, social, and familial functioning. Goal Relevant Strengths/Supports: Client presents as kind, outgoing, and motivated for treatment. Client identified his personal strengths as being persistent, hardworking, fun to be around, and entertaining. Client is receptive to learning new coping skills and bettering his mental health. Client has a friend from the area that is a support and client reports his friends from [place] and his family are supportive as well. - Objectives Objective #1 Stated Objective: Client will learn and utilize 2-3 healthy coping strategies to manage depressive and anger symptoms as shown by reduced DSM-5 cross-cutting symptom measure score for depression. Interventions: Through group and individual sessions, therapist will assist client in learning internal coping strategies to manage depressive symptoms, along with helping client identify triggers. Therapist will help client set SMART goals for behavioral activation and encourage opposite action. Discharge Criteria: Client will have achieved this goal when his DSM-5 symptoms for depression have decreased and he can verbalize and has practiced at least 2 healthy coping strategies. Target Date: 11/09/19 Review Date: 10/28/19 Status: open Objective #2 Stated Objective: Client will identify at least 2-3 negative self-talk messages used to reinforce depression and replace thoughts with positive, realistic messages. Interventions: Therapist will help client identify distorted, negative beliefs about self and replace with more realistic, affirmative messages. Therapist will use CBT to help client increase insight to the connection between thoughts, emotions, and behaviors. Therapist will encourage client to practice thought challenging and self-compassion. Discharge Criteria: Client will have achieved this goal when can verbalize at least 2 negative self-talk messages and effectively replace those thoughts with affirmative messages. Target Date: 11/09/19 Review Date: 10/28/19 Status: open Problem/Goal #2 - Problem/Goal #2 Stated Goal:: Reduce overall frequency, intensity, and duration of the anxiety so that daily functioning is not impaired. Description of Barriers: Client reports limited supports in [place] outside of his and friend. Client shared he has had a hard time adjusting since moving to [facility] two years ago. Client stated he feels lost and misses the culture [place]. Client has numerous stressors in his life right now including; going through a divorce, financial stress, and work. Functional Impact: Client is a 39-year-old male with a history of depression and anxiety. Client was recently admitted to [facility] from 09/16/19-09/21/19 due to a suicide attempt. Client reported he took two Benadryl with a glass of wine. Client also left a suicide note for his , which his found the next morning and called 911. Client described the attempt as silly, I just wanted to make my feel something. I don't think I really wanted to . Client's discharge notes from [facility] indicated opiate use on their tox screen, but client denies any opiate use. Client's primary stressors include marriage issues and lack of support. Client was born and raised in [place] and he moved to [place] two years ago. Client continues to report difficulty adjusting which causes depression and anxiety. Client reports erratic moods, anxiety, feeling lost, and angry. Client's symptoms are currently impacting his occupational, social, and familial functioning. Goal Relevant Strengths/Supports: Client presents as kind, outgoing, and motivated for treatment. Client identified his personal strengths as being persistent, hardworking, fun to be around, and entertaining. Client is receptive to learning new coping skills and bettering his mental health. Client has a friend from the area that is a support and client reports his friends from [place] and his family are supportive as well. - Objectives Objective #1 Stated Objective: Client will identify 2-3 anxiety and stress triggers and 2 calming coping skills to reduce anxiety and increase emotional regulation. Interventions: Therapist will help client increase awareness of anxiety and stress triggers and educate client on ways anxiety impacts overall health. Therapist will teach client various calming strategies to promote emotional regulation and reduction of anxiety. Therapist will assist client in identifying warning signs and triggers. Discharge Criteria: Client will have accomplished this goal when can report at least 2 triggers for anxiety and state using 2 calming strategies to manage symptoms. Target Date: 11/09/19 Review Date: 10/28/19 Status: open Objective #2 Stated Objective: Client will identify 2-3 cognitive distortions that lead to rumination and learn 2-3 ways to manage these thoughts to better manage anxiety. Interventions: Therapist will provide education on the most common cognitive distortions and teach client the connection between thoughts, emotions, and feelings. Therapist will assist client in identifying, challenging, and replacing dysfunctional thoughts with positive, more realistic thoughts. Therapist will use CBT and DBT techniques to help client gain awareness of thinking errors and learn how to more effectively handle negative thoughts. Discharge Criteria: Client will have accomplished this goal when can identify at least 2 cognitive distortions and at least 2 coping skills to manage negative thoughts. Target Date: 11/09/19 Review Date: 10/28/19 Status: open
--- NOTE | 2019-09-29 14:07 | BH.MDN ---
Multi-Disciplinary Note - Note 45-min Individual Time Started:: 12:20 Date: 09/29/19 Purpose of session/treatment goals addressed:: The purpose of this session was to gather information on client's current stressors, symptoms, and treatment goals. Another goal was to build rapport and give homework. Eye Contact:: Good Motor Activity:: Appropriate Appearance:: Neat Speech:: Appropriate Mood:: Anxious Affect:: Congruent Thoughts:: Linear, Logical, No evidence of hallucinations/delusions noted Staff Interventions:: Therapist used active listening and open-ended questions to explore client's current stressors, symptoms, history, and treatment goals. Therapist used strengths perspective to build rapport and help client identify personal resilience factors. Therapist provided psychoeducation on anxiety, anger, maintenance cycles. Therapist gave client a handout on anxiety for homework. Client Response:: Client responded well to session, open to meeting with therapist. Client willing to share about his personal history and complete the psychosocial assessment. Client stated this is his first time in therapy, so he is open to learning new things. Client identified his strengths for therapy to include; being a fun and outgoing sunni, being reliable, hardworking, persistent, and caring. Client also identified his current struggles which included; feeling lost in life, feeling in limbo with his marriage, not feeling connected with people, lack of support in the area, financial stress, and missing home. Client reported his wants a divorce, but he is not direct with client. Client shared he wants to know how to prepare myself for when he has to go to court for his divorce. Client receptive to learning more about his mental health and gaining coping skills. Client shared he wants to work on managing stress, reducing anxiety, and reducing anger. Client stated he does not feel as depressed, but he still feels low and sad. Risks/Concerns:: Client denies any active suicidal ideations, plan, or intent as of 09/29/19. Client was future oriented throughout session. Progress Toward Goals/Plan:: Client's first week of IOP tx. Client recently discharged from inpatient hospitalization follow a suicide attempt. Client reported ?it was just a silly attempt; I really don?t think I wanted to .? Denies any current suicidal thoughts. Currently endorses a depressed mood, feeling ?lost? in life, negative thinking, and sadness. Client also reports anxiety, anger, and worries about the future. Client shared he has limited social supports and [place]. Receptive to learning more about his mental health and gaining coping skills. Will continue IOP tx to prevent decompensation, improve daily functioning, and reduce intensity and duration of symptoms. Time Stopped:: 12:58
--- NOTE | 2019-09-30 09:13 | BH.NA_ITS ---
Physical Data - Vital Signs Pulse Rate: 76 Respiratory Rate: 16 Blood Pressure: 108/58 - Height/Weight Height: 1.8 m Weight:: 65.771 kg - standing scale Weight in Pounds: 145.0 lbs Current Medication Compliance - Medication Compliance Do you take your medication as prescribed?: Yes Nutritional History - Appetite Nutritional Instructions:: If client shows signs of a swallowing problem, weight change of 10 pounds or more in the last month, or is on a diabetic diet, the physician will review and request a dietitian consult, as appropriate. All unintentional weight loss will be referred to the physician for decision on need for dietitian consult. Describe your appetite:: Good Have you noticed a change in your eating habits lately?: Yes - increased Functional Assessment - Sleep Pattern Describe any problems with sleeping: Client states he sleeps about 8-10 hours per night in the last week or so. - Activities Motor Activity:: Functional Sensory/Communication Assess - Communication Problems Do you have difficulty understanding what people are saying?: No What is your primary language?: Burundian Medical Problems/History - Hematologic Conditions Hematologic: Other (See comments) Comments:: HIV positive. Has been taking medication since diagnosis. - Pain Assessment Do you have acute or chronic pain?: No Contagious Disease/Exposure - Exposure Have you been exposed to any of the following:: HIV/AIDS - HIV positive since 2012 Substance Abuse - Substance Abuse Please describe substance abuse in the last 30 days:: Client states he drinks wine about 1 drink per week. Client denies tobacco use. Client states he has not had any drug use since coming to the [facility] 2 years ago. States he did previously use meth, denies opiate use when asked. Client states he drinks 1 espresso per day. Mental Status Summary - Mental Status Significant Findings/Observations on Appearance and Mood:: Client is alert and oriented x4. Client is casually groomed with good hygiene. Client is cooperative, makes good eye contact. Client's voice rate/volume normal, speech spontaneous. Client appears mildly anxious with appropirate affect. Client makes logical associations and has normal processing. Client denies delusions/hallucinations and no evidence of same present. Client denies SI. Client with good attention and concentration during assessment. Suicide Assessment - Suicidal Ideation Are you currently or have you been suicidal in the past?: Yes Suicidal Intentional Rating Scale (SIRS): Suicidal thoughts (past) Physician Notification: If Active suicidal thoughts/Will not contract for safety is checked, contact physician and document in the Physician Notification section below. Past Psychiatric History - MH Treatment Hx Past Psychiatric Medications:: Client states he was on antidepressant in 2013 when diagnosed with depression but does not know what medication. Age of first mental health symptoms: Client states he was diagnosed in 2013 with depression. Describe (age, circumstance, etc) any past hospitalizations: Client was ho spitalized at [place] [facility] 09/15-09/21/19 after suidical attempt with medications. Current providers for mental health treatment (counselor, psychiatrist, transplant case manager, etc.): Client does not currently have counseling/therapy. Client states he stopped going to counseling in July. Fall Risk Assessment - Age Age: Less than 60 - Mental Status Mental Status: Willing & able to ask for assistance when needed - Physical Status Physical Status: No problems - Impairments Impairments: None - Elimination Elimination: Continent AND independent - Gait or Balance Gait or Balance: Walks independently - Hx of Falls History of falls in the past 6 months: No known history - Medications/Substances Psychotropics:: Antipsychotics Medications/substances used within the past 24 hours or ordered to administer: 1-2 of the medications/substances listed above - Total Score Total Points:: 1 RN Summary of Impressions - Impressions Recommendations: Include psychiatric and medical issues, treatment planning recommendations, and discharge planning needs. Impressions: Psychiatric Issues: major depressive disorder recurrent severe without psychosis, history of opiate use disorder Impression: Medical Issues: Client is HIV positive and sees his infectious disease doctor every 6 months. Clients HIV labs currently with normal CD4 count and viral load undetectable. Client has been taking HIV meds since diagnosis in 2012. - Level of Care How do the client's current symptoms and functional deficits support need for this level of care?: Client recently hospitalized earlier this month for a suicidal attempt with medication. Client states he has been feeling stress from a possible divorce with and marital issues. Client states he was diagnosed with depression in 2013 and had not been having symptoms until recently with his marital issues. Client denies SI at this time. Client does report some erratic moods and increase in sleep. IOP will promote gains and prevent further decompensation while providing social support and skills training.
[2019-09-30 09:45] VITALS: BP 108/58; PULSE 76; RESP 16
--- NOTE | 2019-09-30 10:15 | BH.SGPN.GN ---
Behaviors/Verbalizations/Mental Status: []Client alert and oriented, neatly dressed and appropriately groomed. Eye contact good. Motor activity appropriate. Speech WNL. Affect congruent, mood euthymic. Thoughts linear, logical, no signs of hallucinations or delusions. Client Response/Progress/Benefit: []Client active participant as evidenced by providing input throughout discussion and taking notes during psychoeducation. Client agreed that he experiences automatic thoughts and often these thoughts can be negative. Client connected with the discussion about how distorted thought patterns can reinforce mental health symptoms. Client reported cognitive distortions are like judgments we make about ourselves. Client noted that he connects with mind-reading and overgeneralizing. Client reported he recognizes cognitive distortions can lead to increased depression, increase anxiety, and impact relationships. Client shared that one can challenge negative thoughts by stepping out of one's comfort zone. Appeared to benefit from increasing awareness of cognitive distortions and how they can impact emotions and behaviors. Client to continue IOP tx to reduce intensity and duration of symptoms, improve mood stability, and increase healthy coping skills. Narrative Note: []
--- NOTE | 2019-09-30 12:03 | PCM.BH.PSYEV ---
Psychiatric Evaluation - Initial Evaluation Initial Evaluation: Patient is a 39-year-old male with a history of depression who was admitted at [facility] from September 15 to September 21, 2019 due to worsening depression and suicidal ideation and a minor suicide attempt. Patient took 2 Benadryl with a lot of wine and left a suicide note which his found the next morning. His called 911 and the patient was taken to the ER and admitted to the psych unit. He has been to his for 2-1/2 years and he currently lives in a house that his owns with his and his dog. 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 The patient moved to the [facility] from [facility] 2 years ago. He has had some difficulty adjusting to life in the [facility]. There is significant marital stress and he states that his told him that he no longer loved him and was planning to divorce him shortly before the suicide attempt. The patient does not want to get a divorce and states that he still loves his . He does understand the divorce may happen and he has some tentative plans to move back to [facility] and live with his parents for a while but due to the coronavirus travel van he will unable to do this anytime soon. Patient has limited primary support in the area but he says that he does have one good friend who we can confide in and see regularly. Since the discharge from the hospital he says his mood is better. He is still somewhat down and a little anxious and he tries to keep busy. He denies any hopelessness now but said he is worried about the future because of the upcoming possibility of divorce. He has no history of self-harm however. He said he had a has been somewhat depressed over the past year due to marital issues. He says currently his anhedonia has resolved and he is enjoying cooking, dog walking, reading and coloring. His appetite is good and he feels he may be gaining weight since he started the Zyprexa 2 weeks ago. His sleep is good currently. He is tired in the morning but his energy level is better later in the day. His concentration now is normal. He denies any guilt. He has no suicidal ideation now. He did have suicidal ideation from about September 11 to the time he took the Benadryl and wine on September 15, 2019. He is not sure that he really wanted to when he did this. He denies any homicidal ideation ever. He denies hallucinations or delusions. He denies any nona. He denies any drug use despite the hospital records saying that a tox screen was positive for opiates. The patient denies adamantly any drug use and says he did eat some muffins at work and maybe there is something in those. He does admit he had a history of using methamphetamine but not opiates. He last used methamphetamine in 2013. He is anxious about the future and about his marriage but he does not consider himself to be a worrier by nature. He denies any panic attacks or OCD. Denies eating disorders, trauma or PTSD. History of Present Illness: []See above. Current Psychiatric Medications: []Zyprexa 10 mg p.o. nightly (x2 weeks). BuSpar 20 mg p.o. 3 times daily as needed (he only took it once and he had bad side effects on it.) [] Past Psychiatric History: [] Patient has a history of only one psych admit in September 2019 as noted above. Patient has no prior suicide attempts. He does have a history of depression for about the past year. He also had an episode of depression in 2013 which occurred 1 year after moving from [facility] to [place] all by himself. He had financial and primary support stressors at that time. He took an antidepressant and it did help him and he took it for 1 year. He does not remember the name of the antidepressant. 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 He saw a counselor for this and it did improve. He has not been on any other psych meds ever. Substance Use History: [] Patient is a non-smoker. No marijuana use as he tried it but did not like it. He denies any opiate or benzodiazepine use ever. He first used methamphetamine in 2013 and he used it about once a week for a few months only. He denies any other drug use. No rehab ever. Allergies: [] No known allergies Medications: [] Complera (HIV medicine); Zyprexa and BuSpar (x2 weeks only) Past Medical History: [] HIV positive, otherwise no issues. No surgeries ever. No children. Normal sexual function. Family Psychiatric History: [] His father had alcoholism. His mother and father both age 62 and are relatively healthy except his mother has diabetes. Otherwise negative psych history. No suicides in the family. Personal/Social History: [] He was born and raised in [facility]. He describes his childhood as normal. His parents were loving and he denies any physical verbal or sexual abuse ever. His parents had some marital issues but they resolve these over time. He has 1 sister 4 years older than him and they are sort of close. He also has regular communication with his sister's daughter which is the patient's niece who is 8 years old and is in [facility]. Patient did not like school much but he graduated high school and has a college degree in [employer]. Since about age 21 he left home and moved around to [place]. He worked in [employer] in 2012 and then in 2016 moved to [place] and then to [place]. His is a citizen who we met in [place] and they then moved later moved to [place]. Patient had one serious boyfriend before his who he saw for over 5 years. His family is not very accepting that the patient has come out as kuo. Legal History: [] No arrests. 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 Review of Systems: [] Negative except as noted in present illness. Vital Signs: [] Reviewed in nurse's notes. Mental Status Examination: [] Patient is a 39-year-old male who appears younger than stated age and is casually dressed and groomed with good hygiene. He is wearing a hat. He has good eye contact and his speech is normal rate and rhythm and fluent with no pressure. He is cooperative and pleasant during the interview. He has no psychomotor agitation or retardation. Mood is depressed. Affect is full at times and constricted at other times. Thought process is goal-directed and organized. Thought content: No evidence now of suicidal ideation or homicidal ideation. No evidence of hallucinations or delusions. Reality testing is intact. Intelligence is average or above average. Judgment is intact. Insight: Some present. Impulsivity moderate to high. Diagnoses: [] [place] I: [] Major depressive disorder recurrent severe without psychosis; history of opiate use disorder [place] II: [] Deferred [place] III: [] HIV positive [place] IV: [] Primary support issues Plan: [] Patient will start the behavioral health IOP program at [facility] as the structure, support, education, group and individual therapy will hopefully prevent worsening of the patient's symptoms which might require hospitalization. The risk, options, possible complications or side effects of the medication were discussed with the patient and he understands and accepts these. He will continue on the same dose of Zyprexa. He does understand there is a worse risk of weight gain with Zyprexa and down the road of mild metabolic syndrome. I discussed with the patient that I thought that if he continue to improve that he would not need to be on the Zyprexa for more than 6 months at most. I did discuss with him that I would recommend he be started on a antidepressant such as Lexapro or other when he decides to wean off the Zyprexa. He understands that he has an ongoing stressor and until this is resolved he will be high risk for relapse. He felt safe during the interview and if at any time he does not feel safe he will let us know or go to the emergency room. I will see the patient in 2 weeks.
--- NOTE | 2019-09-30 12:20 | BH.DR.ITP ---
Initial Treatment Plan - Patient Information Visit Information: ADMISSION DATE: EXPECTED LOS: 4-6 weeks - Problems/Symptoms Problem #1:: Depression Symptom:: Sadness, suicidal ideation, fatigue Problem #2:: Anxiety Symptom:: Worry about future and marriage
--- NOTE | 2019-10-01 11:20 | BH.SGPN.GN ---
Behaviors/Verbalizations/Mental Status: []Client alert and oriented, casual dress, hygiene tended to. Eye contact good. Motor activity appropriate. Speech within normal limits. Affect congruent, mood euthymic. Thoughts linear, logical, no signs of hallucinations or delusions. Client Response/Progress/Benefit: []Client?engaged during session AEB client providing contributions throughout group session. Client acknowledged the importance of needing to have awareness and put forth the effort to challenge, reframe, and replace distorted thought patterns. Client worked cooperatively with group to challenge distorted thoughts and was attentive in learning strategies to combat distortions. Client reported a distorted thought he had when got the worksheet was I'm not going to be able to fill this paper out. Client reported this thought made him feel anxious and embarrassed. Client stated the thought is all or nothing distortion. Client reframed the thought to If I use my brain and take my time, I'll be able to fill this paper out. Client responded stated with the reframed thought he was able to successfully complete worksheet. Client seemed to benefit from increased awareness of cognitive distortions and practicing reframing distorted thoughts. Client to continue IOP level of care to increase healthy coping, challenge negative thoughts and prevent decompensation. Narrative Note: []
--- NOTE | 2019-10-05 09:14 | BH.SGPN.GN ---
Behaviors/Verbalizations/Mental Status: []Client alert and oriented, neat and casual dress, hygiene tended to. Eye contact good. Motor activity appropriate. Speech within normal limits. Affect congruent, mood anxious, dysthymic. Thoughts linear, logical, no signs of hallucinations or delusions. Reviewed client?s symptom tracker, client indicated a 0/5, with 5 being severe, for suicidal ideation and a 0/5 for suicidal intent. Client Response/Progress/Benefit: []Pt responded well to session AEB pt listening attentively to others and sharing thoughts with group. Pt identified a mental health positive is remaining active during the weekend desite struggling with feeling bored and ?down?. Indicated engaging in opposite action strategies such as cleaning, listening to Amharic music, and cooking. Identified additional win as reaching out to a support and spending time focusing on positive and relaxing things rather than ?everything I have left to get done?. Pt identified his current stressor is completing his unemployment paperwork as he is dreading filing out the forms. Pt stated he can reach out to a healthy support to help motivate and hold him accountable. Pt seemed to benefit from support from peers and identifying mental health positives. Pt to continue IOP to increase healthy coping, challenge negative thinking and prevent decompensation. Narrative Note: []
--- NOTE | 2019-10-05 10:17 | BH.SGPN.GN ---
Behaviors/Verbalizations/Mental Status: []Client alert and oriented, neatly dressed and groomed. Eye contact good. Motor activity appropriate. Speech within normal limits. Affect congruent, mood euthymic. Thoughts linear, logical, no signs of hallucinations or delusions. Client Response/Progress/Benefit: []Client receptive of session, attentive in discussion and activity. Client discussed the quote and provided input that ?managing emotions means you don?t build up and have a meltdown.? Discussed impact of ?stuffing? emotions which included overacting, anger outbursts, and ruined relationships. Client helped group identify barriers that impact one?s ability to communicate when emotions are high. These barriers included; shutting down, being ?snippy,? passive aggressive remarks, loud tone, misinterpretations, and negative thinking. Expressed that unmanaged emotions can negatively impact interactions with others and hurt oneself as well. Client participated in the activity and did well to manage emotions throughout. Client appeared to benefit from increasing awareness of how emotions can impact communication and practicing in the moment coping skills. Progress noted as client reports increased self-awareness, but he can continue to increase his emotional regulation skills. Will continue IOP tx to promote mood stability and improve daily functioning. Narrative Note: []
--- NOTE | 2019-10-05 11:25 | BH.SGPN.GN ---
Behaviors/Verbalizations/Mental Status: []Client alert and oriented, casual dress, hygiene tended to. Eye contact fair. Motor activity appropriate. Speech within normal limits. Affect congruent, mood euthymic. Thoughts linear, logical, no signs of hallucinations or delusions. Client Response/Progress/Benefit: []Client engaged in session AEB client listening attentively to peer and providing input at times during session. Attentive during psychoeducation on 4 zones of regulation. Client able to identify how he feels in each zone as well as how he acts in each zone. Client able to identify what behaviors he exhibits when in the different emotional zones. Group identified coping skills can use to support self in each zone which included: journaling, opposite action, exercising, listening to music, drawing, and puzzle. Client stated he is most often in a low state of alertness. Client stated he will focus on utilizing listening to music to help when in low state of alertness. Benefited from increased education on zones of regulation or stages of alertness for emotions and healthy coping skills to use for each zone. Will continue IOP tx to increase healthy coping skills, improve emotional regulation and prevent decompensation. Narrative Note: []
--- NOTE | 2019-10-05 14:52 | BH.MDN ---
Multi-Disciplinary Note - Note 45-min Individual Time Started:: 12:25 Date: 10/05/19 Purpose of session/treatment goals addressed:: The purpose of this session was to address client's current symptoms, stressors, and triggers. Another goal was to identify healthy coping skills to manage anxiety and anger. Other topics included; communication. Eye Contact:: Good Motor Activity:: Appropriate Appearance:: Neat Speech:: Appropriate Mood:: Euthymic, Anxious Affect:: Congruent Thoughts:: Linear, Logical, No evidence of hallucinations/delusions noted Staff Interventions:: Therapist used active listening and open-ended questions to explore client's current symptoms, stressors, and application of coping skills over the weekend. Therapist provided psychoeducation on triggers and gave client a worksheet to help him identify anger triggers. Therapist assisted client in writing out his triggers, unhealthy reactions, and then healthy coping skills to replace unhealthy reactions. Therapist taught client different calming skills. Therapist encouraged client to use assertive communication with his . Client Response:: Client responded well to session, open to meeting with therapist. Client shared he is feeling calm today, but he was feeling low this weekend. Client stated he was able to cope in a positive way by organizing his room and spending time with a friend. Client shared doing those things lifted his mood and energy levels. Client reported things are still uncertain with his and that they have been acting normal. Client shared it is hard for him to be assertive and ask his direct questions. Client stated he and his have a history of indirect communication. Client recognizes that their poor communication causes mistrust, spying, and triggers anger. Client filled out a worksheet identifying personal triggers for anger. Client's top three triggers included; mistrust, misinterpretations, and when his smokes weed. Client acknowledged that he has not always coped with anger in the healthiest ways. Client reported in the past he has thrown things, yelled, stormed off, and said hurtful things. Client recognizes that while these coping skills are easier, they cause more harm than good. Client identified healthy coping skills including; positive self-talk, coloring, deep breathing, taking a walk, talking to a support, asking for clarification, setting boundaries, and splashing cold water on his face. Client receptive to practicing these coping skills to manage anger and to practice awareness of his triggers. Risks/Concerns:: Client denies any suicidal ideations, plan, or intent as of 10/05/19. Client was future oriented throughout session. Progress Toward Goals/Plan:: Client's second week of IOP and seems to be assimilating well into the group setting. Client has been consistent with his group and individual homework so far which shows motivation. Client continues to endorse a depressed mood, anxiety, avoidance behaviors, irritability, and negative thoughts. Client was able to use healthy coping skills over the weekend to prevent worsening anxiety symptoms. Will continue IOP tx to promote mood stability, improve healthy emotional regulation skills, and reduce intensity and duration of symptoms. Time Stopped:: 13:05
--- NOTE | 2019-10-06 09:06 | BH.SGPN.GN ---
Behaviors/Verbalizations/Mental Status: []Client alert and oriented, casual dress, hygiene tended to. Eye contact fair to good. Motor activity appropriate. Speech within normal limits, quite. Affect congruent, mood anxious, dysthymic. Thoughts linear, logical, no signs of hallucinations or delusions. Reviewed client?s symptom tracker, client denies any active suicidal ideation or intent. Client Response/Progress/Benefit: []Client responded well to session AEB pt listening attentively to others and being willing to process with the group. Pt identified a mental health positive as making an effort slow himself down and take things one at a time this morning despite feeling fitzpatrick and more anxious. Explained that taking a step back helped him to calm himself and prevent from escalating. Pt stated additional mental health positive as getting to group this morning and challenge himself to focus on positives despite not sleeping well and struggling with anxiety. Identified current stressor as feeling he has too many responsibilities on his plate and not enough time to complete the tasks today. Pt seemed to benefit from support from peers and challenging himself to identify if he is able to reprioritize or adjust his schedule to reduce anxiety and stress. Pt to continue IOP to increase healthy coping, challenge distorted thinking and prevent decompensation. Narrative Note: []
--- NOTE | 2019-10-06 10:13 | BH.SGPN.GN ---
Behaviors/Verbalizations/Mental Status: []Client alert and oriented, casually dressed and groomed. Eye contact good. Motor activity appropriate. Speech within normal limits. Affect constricted, mood depressed. Thoughts linear, logical, no signs of hallucinations or delusions. Client Response/Progress/Benefit: []Client responded well to session, attentive and engaged throughout session, but less vocal than normal. Client appeared to connect with the topic of fear of failure. Client participated in the discussion of famous failures and agreed with peers that people often see successes in others, and failures within themselves. Client connected with concept of fear of failure and the negative impacts it leads to. Group identified the impacts of fear of failure on mental health which included; avoidance of new opportunities, poor self-esteem, self-sabotage, increased anxiety and depression, and decreased confidence. Client stated belief he does not struggle that much with fear of failure, but can understand how this keeps people stuck. Client agreed with peers that in order to move past failure it is important to challenge one?s perspective on failure. Client seemed to benefit from increased awareness of how fear of failure can impact mental health. Engaged and positive during the group activity. Client progressing with increase healthy coping skills, but he continues to struggle with verbalizing needs with his . Will continue IOP tx to increase emotional regulation skills and promote mood stability. Narrative Note: []
--- NOTE | 2019-10-06 11:15 | BH.SGPN.GN ---
Behaviors/Verbalizations/Mental Status: []Client alert and oriented, casually dressed and groomed. Eye contact good. Motor activity appropriate. Speech less vocal than previous sessions. Affect constricted, mood depressed. Thoughts linear, logical, no signs of hallucinations or delusions. Client Response/Progress/Benefit: []Client responded well to session, participating during the group activity and willing to complete the worksheet. Client worked with the group to complete the challenge activity and the group shared that support and guidance from fellow participants helped to accomplish the activity. Client completed the fear of failure worksheet and reported that fear of failure is keeping client from confronting things in his relationship. Client able to identify barriers that reinforce his fear of failure which included; negative self-talk, others not believing in him, and focusing more on others? opinions rather than his own. Client attentive during discussion of the different strategies to help overcome fear of failure. Group identified strategies such as; positive self-talk, affirmations, opposite action, keeping track of wins, setting smart goals, and accepting that mistakes happen. Client selected wanting to work on setting smart goals, seeking positive reinforcement, and practice self-awareness of his excuses to help client overcome fear of failure. Client appeared to benefit from learning ways to overcome fear of failure. Will continue IOP tx to increase the use of healthy coping skills to manage anxiety and depression. Narrative Note: []
== END 2019-10-06 23:59 ==
LOC: BHIOP 09:00
PROVIDERS: PCP Internal Medicine Infectious Disease; Referring Provider Psychiatry & Neurology Psychiatry; Visit Provider Psychiatry & Neurology Psychiatry
DX: F33.2 Major depressive disorder, recurrent severe without psychotic features (principal); Z79.899 Other long term (current) drug therapy; Z91.5 Personal history of self-harm; F11.90 Opioid use, unspecified, uncomplicated
CPT/HCPCS: H0035; 90834; 90853

== ENCOUNTER 2019-10-07 09:00 | Outpatient (RCR) | payer OTHER, SELFPAY ==
[2019-09-16 07:57] VITALS: BMI 22.3
[2019-10-07 01:01] VITALS: BP 108/58; PULSE 76; RESP 16
--- NOTE | 2019-10-07 09:08 | BH.SGPN.GN ---
Behaviors/Verbalizations/Mental Status: []Client alert and oriented, casual dress, hygiene tended to. Eye contact good. Motor activity appropriate. Speech within normal limits. Affect congruent, mood euthymic. Thoughts linear, logical, no signs of hallucinations or delusions. Reviewed client?s symptom tracker, no signs of suicidal ideation, plan, or intent as of today. Client Response/Progress/Benefit: []Pt responded well to session AEB pt sharing thoughts and feelings during session and listening attentively to others. Pt identified mental health positive as having a better night of sleep. Pt reported additional mental health positive as filing for unemployment yesterday which is something he has been avoiding. Pt stated he also spoke to his mom on the phone yesterday which was the first time in two weeks. Progress noted with pt following through with goal of filing for unemployment. Pt to continue IOP to increase healthy coping, challenge distorted thoughts and prevent decompensation. Narrative Note: []
--- NOTE | 2019-10-07 10:08 | BH.SGPN.GN ---
Behaviors/Verbalizations/Mental Status: []Client alert and oriented, neatly dressed and groomed. Eye contact good. Motor activity appropriate. Speech within normal limits. Affect congruent, mood euthymic. Thoughts linear, logical, no signs of hallucinations or delusions. Client Response/Progress/Benefit: []Client was an engaged participant throughout group session AEB client contributing thoughts during discussion, listening attentively and taking notes throughout. Client reported belief that while one cannot always control their stress ?load? one can control how they carry it or cope with it. Client reported sometimes he takes on more of a ?load? than he has to because he struggles with asking for help. Group identified unhealthy coping skills which included; denying there is a problem, ?throwing yourself in work,? sleeping, avoidance, and externalizing. Client stated people often turn to unhealthy coping skills because they are easier, are learned behaviors, and hard habits to break. Group identified consequences of using unhealthy coping skills which included; problem gets worse, can increase intensity of mental health symptoms, cause guilt, and hurt relationships. Client shared learning healthy coping skills takes self-awareness and practice. Discussed the benefits of having a balance of internal and external coping skills. Client seemed to benefit from increased awareness of importance of increasing healthy coping skills and consequences of utilizing unhealthy coping skills. Client will continue IOP tx to further decrease intensity of symptoms, improve daily functioning, and increase confidence. Narrative Note: []
--- NOTE | 2019-10-07 11:10 | BH.SGPN.GN ---
Behaviors/Verbalizations/Mental Status: []Client alert and oriented, casually dressed and groomed. Eye contact good. Motor activity appropriate. Speech within normal limits, quiet. Affect congruent, mood dysthymic, anxious. Thoughts linear, logical, no signs of hallucinations or delusions. Client Response/Progress/Benefit: []Client responded well to session, taking notes during discussion. Providing some input, though remained mostly passive and at times appearing distracted by own thoughts. He contributed as the group discussed the different categories of coping skills which included distraction, emotional release, grounding, self-love, and thought challenging. Client identified examples of different ways to practice self-love. Participated in creating a coping skills ?menu? for the five categories of coping skills. Client identified wanting to focus on improving thought challenging skills this week. Shared his will help to reduce negative thoughts and ruminations related to end of his relationship. He appeared to benefit from increasing repertoire of healthy coping skills. Client progress shown by reports of reduced use of unhealthy emotion release and is using opposite action, however appears to continue to struggle with significant anxiety. Will continue IOP tx to prevent decompensation, improve mood stability, and promote healthy change behaviors. Narrative Note: []
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
--- NOTE | 2019-10-12 10:10 | BH.SGPN.GN ---
Behaviors/Verbalizations/Mental Status: []Client alert and oriented, neatly dressed and groomed. Eye contact good. Motor activity appropriate. Speech within normal limits. Affect constricted, mood calm. Thoughts linear, logical no signs of hallucinations or delusions. Client Response/Progress/Benefit: []Client responded well to session, attentive and contributing to discussion. Client contributed to the discussion of the quote and shared ?it?s good to have a support system.? Client reported belief that one?s support systems serve different purposes. Client shared for example, a friend has a different role than a therapist. Helped the group identify different types of social support such as family, friends, counselors, psychiatrists, hotlines, and support groups. Discussed the benefits of using social supports to include; emotional release, feeling connected, resources, shared experience, and challenging perspective. Group discussed the barriers that impact one?s ability to use social support or that prevent people from reaching out to their supports. These barriers included; not knowing what support is needed, fear of being a burden, relying too heavily on one support, shutting down, and lack of communication. Client shared feeling like a burden has kept him from reaching out to his supports in the past. Appeared to benefit from gaining insight on the benefits to social supports and the barriers that keep people from using support. Will continue IOP tx to further decrease intensity and duration of mental health symptoms. Narrative Note: []
--- NOTE | 2019-10-12 11:13 | BH.SGPN.GN ---
Behaviors/Verbalizations/Mental Status: []Client alert and oriented, casually and neatly dressed and groomed. Eye contact fair to good. Motor activity appropriate. Speech within normal limits. Affect constricted, mood dysthymic. Thoughts linear, logical, no signs of hallucinations or delusions. Client Response/Progress/Benefit: [] Client a semi-active participant AEB contributing some to discussion, though provided less input than usual. Client was listening attentively to others. Client participated in group discussion about the different types of support and benefits different types of support can provide. He gave an example regarding spiritual and professional supports. Client identified he would like to increase social supports in the area of self-help supports by tapping back into old hobbies he enjoyed in the past so he has healthy coping skills with supports are not available. Client shared this will help improve internal coping skills and improve ability to cope with his mental health symptoms when healthy supports are not available. Client seemed to benefit from identifying a type of support he would like to improve upon and brainstorming small steps to take in order to successfully do so. Progress noted as shown by client's increased insight regarding skills that will improve his ability to cope with mental health sx. Though continues to struggle with consistent follow through. Client to continue IOP tx to reduce anxiety, improve healthy coping skills, and increase mood stability. Narrative Note: []
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
--- NOTE | 2019-10-13 10:16 | BH.SGPN.GN ---
Behaviors/Verbalizations/Mental Status: []Client alert and oriented, neat and casually dressed and groomed. Eye contact fair to good. Motor activity appropriate. Speech within normal limits. Affect constricted, mood dysthymic, anxious, agitated. Thoughts linear, logical, no signs of hallucinations or delusions. Client Response/Progress/Benefit: []Client was attentive throughout AEB taking notes and actively listening, provided reduced input compared to baseline. Participated in discussion of the quote and shared agreeing that choosing a healthier path in life can be difficult. Expressed that in the past he knew it was time to take a different path but denied this or avoided out of fear. The group worked together to identify barriers that may prevent choosing a new and healthier path to mental wellness which included; not wanting the change/lack of readiness, lack of motivation and willingness to put forth effort, limited support, as well as having a negative or distorted perspective. Attentive during psychoeducation on the chapters of life, nodding as others provided insight to distinguishing factors in each chapter. Benefited from increased awareness and education on barriers to choosing new wellness paths and the different chapters of life experienced in taking a new path. Client willingly participated in processing portion. Progress noted in pt ability to connect with materials discussed. Continues to struggle with distorted thoughts and consistent skill application. Will continue IOP tx to further reduce anxiety and depression, promote healthy sense of self, while improving client?s ability to function at baseline. Narrative Note: []
--- NOTE | 2019-10-13 11:15 | BH.SGPN.GN ---
Behaviors/Verbalizations/Mental Status: []Client alert and oriented, casual dress, hygiene tended to. Eye contact fair. Motor activity appropriate. Speech within normal limits. Affect constricted, mood dysthymic. Thoughts linear, logical, no signs of hallucinations or delusions. Client Response/Progress/Benefit: []Client was a passive participant in group discussion, contributing only if elicited by therapist however appear to listen attentively to others. Client stated he was feeling extremely tired today. Client reported believes he is currently in chapter 3? as client shared he recognizes he keeps engaging in same behavior that keeps him stuck. Pt stated comfort zone, not asking for help and low self-esteem are currently keeping him stuck from progress. Benefited from group by increasing awareness of Will continue in IOP to increase consistent use of healthy coping, challenge negative thoughts and prevent decompensation. Narrative Note: []
--- NOTE | 2019-10-13 13:52 | BH.MDN_ITS ---
Multi-Disciplinary Note - Note 45-min Individual Time Started:: 12:09 Date: 10/13/19 Purpose of session/treatment goals addressed:: The purpose of this session was to address current stressors, symptoms, and triggers. Another goal was to weigh the pros and cons of a current stressor. Other topics included; self-care. Eye Contact:: Good Motor Activity:: Slowed Appearance:: Neat Speech:: Appropriate Mood:: Dysthymic Affect:: Constricted Thoughts:: Linear, Logical, No evidence of hallucinations/delusions noted Staff Interventions:: Therapist used active listening and open-ended questions to explore client's current stressors, symptoms, and triggers. Therapist reviewed client's application of coping skills over the weekend. Therapist used a decisional balance technique to help client analyze the pros and cons of a current stressor. Therapist processed the pros and cons with client and encouraged client to reflect on his choices overnight. Client Response:: Client responded well to session, open to meeting with [employer]. Client presented with lower energy levels today. Client reported he was unsure what caused his increased fatigue. Client denies any other symptoms of COVID-19. Client stated he had a good weekend and was active. Client reported he has been using coloring and walking as both self-care and ways to manage anger and anxiety. Client reports he continues to find benefits from coming to [facility] and was receptive to using a decisional balance technique today. Client continues to struggle with feeling in ?limbo? regarding his current relationship. Client?s has mentioned wanting to get a divorce and claims that he has already filed. However, client reports his has not showed client any paperwork and ?things appear normal.? Client has been avoiding talking to his and asking for clarification due to fear of conflict. Client also recognizes that talking to his could lead to hearing things client does not want to hear and cause client to ?not live in a fairy tale anymore.? Willing to weigh the pros and cons of avoiding versus confronting his . Pros of confronting included; fdc relief, gaining clarity and direction, and short-term pain for supervisor intermediates gains. Pros for avoiding included; happier short-term, less conflict, easier to be around his , and less anxiety short-term. Client recognizes that the cons of avoiding have numerous negative impacts on client?s mental health. These included; increased anxiety, self-hate, self-blame, increased irritability, not being prepared for the future, and living the unknowns. Client was not yet ready to make a decision, but he was willing to reflect on his choices tonight for homework. Risks/Concerns:: Client denies any suicidal ideations, plan, or intent as of 10/13/19. Progress Toward Goals/Plan:: Client seems to be making progress towards his treatment goals as shown by his report of applying coping skills outside of group. However, client continues to endorse a depressed mood, anxiety, avoidance behaviors associated with his interpersonal relationship issues. Client has gained awareness that continuing to avoid conflict will on further exacerbate his mental health symptoms which is progress. Client was able to use healthy coping skills over the weekend to manage anger. Will continue IOP tx to promote mood stability, improve healthy emotional regulation skills, and reduce intensity and duration of symptoms. Time Stopped:: 12:50
--- NOTE | 2019-10-14 09:02 | BH.SGPN.GN ---
Behaviors/Verbalizations/Mental Status: []Client alert and oriented, neat and casual in appearance. Eye contact good. Motor activity appropriate. Speech within normal limits. Affect congruent, mood anxious. Thoughts linear, logical, no signs of hallucinations or delusions. Reviewed daily symptom tracker and client denies any suicidal ideation, plan, or intent at this time. Client Response/Progress/Benefit: []Pt was an active participant in group AEB pt listening attentively, providing input, and openly processing feelings with the group. Emotion for today is positive and pt shared feeling better this morning than he had on the previous date. He identified mental health positive as being able to identify his low mood on the previous date and take a nap in order to recollect himself and prevent from getting further agitated. Pt stated additional mental health positive as making an effort to move forward in finalizing everything regarding the end of his marriage. Shared feeling anxious and stressed in doing so but was able to identify that this would allow him to move forward with his own mental health as well. Pt expressed that setting a prescheduled date to talk with his spouse as a strategy for holding him accountable. Appeared to benefit from support of the group. Progress noted in pt ability to identify and begin addressing barrier of avoidance. Continued IOP tx recommended to continue application of healthy coping skills, identify and challenge distorted thoughts, reduce mental health sx, and prevent decompensation. Narrative Note: []
--- NOTE | 2019-10-14 10:15 | BH.SGPN.GN ---
Behaviors/Verbalizations/Mental Status: []Client alert and oriented, casual dress, hygiene tended to. Eye contact good. Motor activity appropriate. Speech within normal limits. Affect constricted, mood dysthymic. Thoughts linear, logical, no signs of hallucinations or delusions. Client Response/Progress/Benefit: []Pt passive participant AEB pt not providing input during discussion, however appeared to listen attentively to others. Group identified being resilient is important because helps people bounce back from hardships. Pt worked cooperatively with group to identify how different characteristics can increase resiliency. Pt seemed to benefit from increasing awareness of strategies to increase personal resilience. Pt to continue IOP to increase consistent application of healthy coping, challenge distorted thoughts and prevent decompensation. Narrative Note: []
--- NOTE | 2019-10-14 11:14 | BH.SGPN.GN ---
Behaviors/Verbalizations/Mental Status: []Client alert and oriented, casually dressed and groomed. Eye contact good. Motor activity appropriate. Speech within normal limits. Affect constricted, mood dysthymic. Thoughts linear, logical, no signs of hallucinations or delusions. Client Response/Progress/Benefit: []Client engaged participant as shown by his attentive listening, but he was withdrawn during discussion. Client listened as peers as they identified how each resiliency component can help increase personal resiliency. Client appeared disconnected today and he shared he was struggling to keep up during discussion. This therapist reviewed the resilience components with client to help him better understand. Client shared he was still struggling to identify his own factors, but he had a better idea of what resilience means. Client was tearful when talking with therapist, but he was receptive to emotional support and words of encouragement. Client appeared to benefit from reviewing the resilience factors with therapist and receiving emotional support. Client to continue IOP to help client cope more effectively with life stressors and improve mood stability. Narrative Note: []
--- NOTE | 2019-10-14 11:40 | PCM.BH.PN ---
Progress Note Progress Note: History of Present Illness/Interim History: [] The patient is a 39-year-old male who is seen in follow-up at the [facility] behavioral health program. I last saw the patient about 2 weeks ago. He is being treated for depression and is status post an admission for this in mid September. The patient states that he has been doing well overall. He is enjoying the IOP program and feels he is benefiting from it by learning skills he can use to manage stress in his life. His mood he says overall is positive. He says he is not feeling down lately except on occasions and this does not last long. He said his sleep is very good he is sleeping 8 to 9 hours a night at least. He says he does feel somewhat tired especially in the morning. He feels that the medication is has helped him and he feels overall that he is much more relaxed than he used to be. He is still worried somewhat over his future but he understands that if his divorces him that he can go back to his parents in [place]. He is still living with his although his has told him that he filed for divorce in the recent past. The patient says that he and his still have dinner together but they do not discuss the issue of their divorce or any other personal issues anymore. He denies any suicidal or homicidal ideation. He denies hallucinations or delusions. He denies any passive thoughts that he would not care if he . He is hopeful that even if his marriage does not and divorce that he again has a support system over in [place] and he can stay with his parents for a while until he decides what he is going to do. Current Psychiatric Medications: [] Zyprexa 10 mg p.o. nightly Mental Status Examination: [] The patient is a 39-year-old male who appears younger than stated age and is casually dressed and groomed with good hygiene. He is wearing a hat during our interview. He has good eye contact and his speech is normal rate and rhythm and fluent with no pressure. He has no psychomotor agitation or retardation. He is cooperative and pleasant during the interview. His mood is euthymic. His affect is constricted but full at times. His thought process is goal-directed and organized. His thought content: No evidence of suicidal or homicidal ideation. No evidence of hallucinations or delusions. Concentration intact but at times he has trouble paying attention mostly due to fatigue. Judgment: Intact. Impulsivity: Moderate. Insight: Some present. 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 The risk, options, and possible complications and side effects of the medication were discussed with the patient and he understands and accepts these. The patient wishes to stay on the same dose of Zyprexa despite feeling some fatigue from it because he feels that it is benefiting him. He felt safe during the interview and if at any time he does not feel safe he will let us know or go to the emergency room.
--- NOTE | 2019-10-20 09:02 | BH.SGPN.GN ---
Behaviors/Verbalizations/Mental Status: []Client alert and oriented, neatly groomed and casual in appearance. Eye contact good. Motor activity appropriate. Speech within normal limits. Affect congruent, mood anxious and euthymic. Thoughts linear, logical, no signs of hallucinations or delusions. Reviewed daily symptom tracker and client denies any suicidal ideation, plan, or intent at this time. Client Response/Progress/Benefit: []Pt was an active participant in group discussion AEB listening to peers, nodding, and openly processing with the group. Emotion for today is neutral. Pt identified mental health positive as being able to speak with his grandmother in [place] through video chat. Shared that he is close with her and that he does not get to catch up with her often. Pt expressed this helped to remind him of the supports that he has available. Pt stated additional mental health positive as taking time for more difficult self-care and cleaned out the fridge at his house. Expressed that cleaning is often a self-soothing tool for him. Shared that it helps him to deal with his current stressor which is fear of what his future plans will be. Expressed currently avoiding dealing with this but knows that continued avoidance will result in increased stress later. Able to recognize packing up small items as a manageable step he could take to beginning to address sorting out plans for the future. Progress noted in pt ability to actively identify barriers preventing progress and begin to address these. Continued IOP tx recommended to continue application of healthy coping skills, identify and challenge distorted thoughts, and prevent decompensation. Narrative Note: []
--- NOTE | 2019-10-20 10:18 | BH.SGPN.GN ---
Behaviors/Verbalizations/Mental Status: []Client alert and oriented, casually dressed and groomed. Eye contact good. Motor activity appropriate. Speech within normal limits. Affect congruent, mood euthymic. Thoughts linear, logical, no signs of hallucinations or delusions. Client Response/Progress/Benefit: []Client responded well to session and contributed to discussion of the quote, sharing ?when we try to control things out of our control, we end up out of control.? Client connected with the group topic of crisis and helped to define crisis. Group identified examples of potential crisis to include loss of a loved one, relationship problems, divorce, job loss, the current COVID-19 pandemic, and medical problems. Client agreed with peers that anything can lead to a crisis. Connected with discussion on how coping with external crises by using unhealthy coping skills could result in a personal crisis. Group identified unhealthy coping skills to include; using substances, denial, avoidance/isolation, anger outbursts, suicidal thoughts, and overscheduling. Group reported that it is important to have awareness of warning signs which can prevent hitting ?rock bottom.? Group identified warning signs for crisis and Client completed the personal warning signs worksheet. Identified crisis warning signs to included; avoiding people, decreased energy, and overeating. Benefited by increasing awareness of crisis and personal warning signs. Progress noted in client?s overall increased self-awareness and application of calming skills. However, client continues to report avoidance of major stressors in his life which further increases anxiety Narrative Note: []
--- NOTE | 2019-10-20 14:38 | BH.MDN_ITS ---
Multi-Disciplinary Note - Note 30-min Individual Time Started:: 12:20 Date: 10/20/19 Purpose of session/treatment goals addressed:: The purpose of this session was to address current stressors, symptoms, and barriers to communication. Another goal was to weigh the pros and cons of a current stressor. Other topics included; conflict. Eye Contact:: Good Motor Activity:: Appropriate Appearance:: Casual Speech:: Appropriate Mood:: Irritable Affect:: Constricted Thoughts:: Linear, Logical, No evidence of hallucinations/delusions noted Staff Interventions:: Therapist used active listening and open-ended questions to explore client's current stressors, symptoms, and barriers to communicating with . Therapist reviewed client's application of coping skills over the weekend. Therapist attempted to challenge client's avoidance behaviors and help client see potential consequences of ongoing avoidance. Therapist reviewed healthy coping skills client can use today. Client Response:: Client responded well to session, open to meeting with therapist. Client reports feeling more like himself this week, but he continues to struggle with avoiding conflict within his relationship. Client shared last week he saw the divorce papers his had filed which triggered sadness and anxiety within client. Per client's report, he handled the situation well as client shared I didn't case a fuss about it and he just let it go. However, client and his have a history of avoiding conflict which then leads to more issues later. Client shared we never had good communication. Client stated he is not going to address this with his , instead he is going to wait for his to approach client. Client and therapist discussed the potential consequences of waiting to address this issue, but client rationalized why avoiding would be best. Client able to recognize that he has a lot of unanswered questions that will continue to cause rumination if client does not communicate with his . Client willing to think more about setting a deadline to have this difficult conversation with his . Client self- reports that he is calm about the situation, but there appears to be some dissonance in client's feelings and behaviors. Client able to review healthy coping skills to use to manage anxiety, sadness, and anger. Risks/Concerns:: Client denies any suicidal ideations, plan, or intent as of 10/20/19. Progress Toward Goals/Plan:: Client continues to show progress with applying coping skills outside of IOP which help client reduce anxiety and better manage his anger. However, client continues to avoid conflict associated with his interpersonal relationship. Client reports awareness that his avoidance only prolongs feeling in limbo but client continues to rationalize this avoidance. Client was able to use healthy coping skills over the weekend to manage anger. Will continue IOP tx to promote mood stability, improve healthy emotional reg ulation skills, and decrease avoidance behaviors. Time Stopped:: 12:40
--- NOTE | 2019-10-21 09:05 | BH.SGPN.GN ---
Behaviors/Verbalizations/Mental Status: []Client alert and oriented, casually dressed and groomed. Eye contact good. Motor activity appropriate. Speech within normal limits. Affect congruent, mood anxious. Thoughts linear, logical, no signs of hallucinations or delusions. Reviewed client?s symptom tracker, no signs of suicidal ideation, plan, or intent as of 10/21/19. Client Response/Progress/Benefit: []Client responded well to session, engaged and listening actively to peers. Client reports feeling hopeful and optimistic today. Client stated he is trying to be optimistic about his marriage and believe that things could get better, but he does not know if that is realistic. Client reported he has more energy this week than he had last week which is positive. Client continues to report avoiding conflict and addressing issues with his . Client reports he has awareness that ongoing avoidance will only make things worse, but he continues to avoid. Client did take steps towards engaging with his and shared they had a conversation about divorce, but client did not ask the many questions he had. Client shared his stressor today is that he continues to have a lot of unanswered questions. Appeared to benefit from connecting with peers and verbalizing his stressors. Progress noted in client's report of increased energy and application of coping skills, but he continues to struggle with managing his emotions associated with his interpersonal relationship. Will continue IOP tx to promote use of healthy coping skills and reduce anxiety. Narrative Note: []
--- NOTE | 2019-10-21 10:16 | BH.SGPN.GN ---
Behaviors/Verbalizations/Mental Status: []Client alert and oriented, casual dress, hygiene tended to. Eye contact good. Motor activity appropriate. Speech within normal limits. Affect congruent, mood dysthymic. Thoughts linear, logical, no signs of hallucinations or delusions. Client Response/Progress/Benefit: []Pt semi-active participant as evidenced by pt providing limited input during discussion however, did appear to listen attentively to others. When reviewing the quote pt agreed people shouldn?t define themselves by their illness. Pt worked cooperatively with group to identify how we define ourselves which included: upbringing, societal expectations, our abilities, accomplishments, failures, education, and material things. Pt worked with group to identify that stigma can keep people from the following: connecting with others, difficulty enjoying the moment, going after a job or goals, and asking for help. Pt seemed to benefit from increased awareness of how mental health stigma can impact progress. Pt to continue IOP to increase healthy coping, challenge negative thoughts and prevent decompensation. Narrative Note: []
--- NOTE | 2019-10-21 11:19 | BH.SGPN.GN ---
Behaviors/Verbalizations/Mental Status: []Pt eye contact good, casually dressed, motor activity appropriate, speech normal rate and tone, mood anxious and euthymic, congruent affect, thoughts linear and intact, no evidence of delusions or hallucinations. Client Response/Progress/Benefit: [] Client responded well to session AEB listening and taking notes, as well as providing input to discussion. Asked clarifying questions throughout. Engaged in activity about facts and statistics of mental illness. Group connected with the mental health statistics, recognizing the prevalence of mental health. Group brainstormed strategies to combat social and perceived stigma which included: educating others and themselves, no longer using negative language about mental illness, being open about mental health, volunteering, and not using deflection like humor or joking to minimize symptoms. Expressed relating to examples shared by fellow participants. Client stated he believes he would benefit from reducing use of humor as a means of minimization in order to reduce social and perceived mental health stigma. Appeared to benefit from increasing awareness of strategies to combat stigma. Progress in reduced use of avoidance. Will continue IOP tx to reduce anxiety and depression, improve change behaviors, improve consistent application of coping skills, and prevent decompensation. Narrative Note: []
--- NOTE | 2019-10-22 09:00 | BH.SGPN.GN ---
Behaviors/Verbalizations/Mental Status: []Client alert and oriented, casual dress, hygiene tended to. Eye contact good. Motor activity appropriate. Speech within normal limits. Affect constricted, mood anxious. Thoughts linear, logical, no signs of hallucinations or delusions. Client Response/Progress/Benefit: []Pt responded well to session as evidenced by pt listening attentively to others and openly sharing thoughts and feelings. Pt stated he is feeling tired this morning even though had a good night of sleep. Pt reported a mental health positive is getting a call from unemployment yesterday asking him for additional documentation. Pt stated although there is some stress with having to find the additional documentation, he reported it's a positive because at least there is forward progress. Pt identified additional positive as hanging out with his friend. Pt shared he is still avoiding talking to his about their relationship. Pt reported he will talk to his by Saturday. Pt continues to avoid anxious provoking situation which in the long-term increases his anxiety. Pt to continue IOP to decrease avoidance, increase use of healthy coping and prevent decompensation. Narrative Note: []
--- NOTE | 2019-10-22 10:11 | BH.SGPN.GN ---
Behaviors/Verbalizations/Mental Status: []Pt eye contact good, casually dressed, motor activity appropriate, speech normal rate and tone, mood euthymic, congruent affect, thoughts linear and intact, no evidence of delusions or hallucinations. Client Response/Progress/Benefit: []Client was an active participant AEB completing worksheet and listening attentively to peers. He provided input throughout and did well to ask clarifying questions. Despite some difficulties in concentration, client did well to work with the group to define anger and its causes, as well as the potential consequences of unhealthy management of anger. These included: losing relationships, guilt, damaged property, increased rumination, and other?s avoiding us. Worked with group to review anger responses and shared that her common anger response includes: breaking things, slamming doors, saying the first thing on mind, and bad language. Identified this is impacting his ability to effectively cope. Client appeared to benefit from psychoeducation on the negative impacts of unmanaged anger and increasing self-awareness of own anger signs. Progress noted as client reports increased ability to identify healthy coping though continues to engage in avoidance and struggle with implementing these skills. Will continue IOP tx to prevent decompensation, promote healthy change behaviors, and improve mood stability. Narrative Note: []
--- NOTE | 2019-10-22 11:08 | BH.SGPN.GN ---
Behaviors/Verbalizations/Mental Status: []Client alert and oriented, neatly dressed and groomed. Eye contact good. Motor activity appropriate. Speech within normal limits. Affect congruent, mood euthymic. Thoughts linear, logical, no signs of hallucinations or delusions. Client Response/Progress/Benefit: []Client was an engaged participant throughout group AEB client providing input throughout discussion. Client contributed to the continued discussion of how people express anger as well as the underlying emotions of anger. Client reported his underlying emotions to anger often include; feeling abandoned, feeling hurt, stress, frustration, and resentment. Client helped the group identify common warning signs of anger such as; feeling hot, tense, headaches, and restlessness. Group brainstormed with group healthy coping skills to help manage anger which included: mindfulness, deep breathing, angry dancing, going outside, and progressive muscle relaxation. Client selected deep breathing and verbalizing the need for breaks as his coping skills to manage anger. Client appeared to benefit from brainstorming with the group potential strategies to manage anger in healthy ways. Recommended continued IOP increase healthy coping skills, further decrease intensity of symptoms, and improve interpersonal effectiveness skills. Narrative Note: []
--- NOTE | 2019-10-26 09:02 | BH.SGPN.GN ---
Behaviors/Verbalizations/Mental Status: []Client alert and oriented, casual dress, hygiene tended to. Eye contact good. Motor activity appropriate. Speech within normal limits. Affect constricted, mood anxious. Thoughts linear, logical, no signs of hallucinations or delusions. Reviewed client's daily symptom tracker, no risk of suicidal ideation, plan, or intent as of 10/26/19. Client Response/Progress/Benefit: []Client responded well to session, attentive and providing supportive feedback to peers. Client reports feeling hesitant today. Client shared his stressor continues to be that he avoids talking to his about their relationship status. Client shared I know it's my homework to talk and he shared he is going to do that tonight. Client stated he has been avoiding this conversation because he is worried about what his will say and that there hasn't been a right time. The group provided client with supportive feedback and strategies to reduce anxiety before having this conversation. Client acknowledged that he will feel better after having the conversation and that continuing to avoid only makes things harder. Client's mental health wins today included spending time with a friend over the weekend, mailing his paystubs for unemployment, and enjoying the weather being nice outside. Appeared to benefit from gaining support from the group and reviewing coping skills. Will continue IOP tx to improve mood stability, reduce anxiety, and improve interpersonal effectiveness skills. Narrative Note: []
--- NOTE | 2019-10-26 10:07 | BH.SGPN.GN ---
Behaviors/Verbalizations/Mental Status: []Client alert and oriented, neat and casually dressed and groomed. Eye contact fair to good. Motor activity appropriate. Speech within normal limits. Affect congruent, mood euthymic and anxious. Thoughts linear, logical, no signs of hallucinations or delusions. Client Response/Progress/Benefit: []Client was a semi-active participant AEB client providing some though limited input during discussion listening attentively to others. Contributed some to discussion on importance of being able to ?sit with uncomfortable feelings? and expressed agreement that this is much harder than appears. Shared struggling with this currently in his own life. Client connected with discussion on different types of anxiety, as well as the difference between ?normal? anxiety and anxiety disorders. Client gained awareness of personal physical symptoms of anxiety which included: fatigue, tight muscles, feeling more irritable, restlessness, racing heart, and upset stomach. Client identified anxious thoughts he has include: catastrophizing and what if statements, as well as assuming. Client appeared to benefit from gaining insight to physical signs of anxiety and how thoughts can increase or maintain anxiety. Will continue IOP to increase consistent application of healthy coping skills for reducing anxiety, challenge distorted thoughts, improving change behaviors, and prevent decompensation. Narrative Note: []
--- NOTE | 2019-10-26 11:15 | BH.SGPN.GN ---
Behaviors/Verbalizations/Mental Status: []Client alert and oriented, neat and casual in appearance. Eye contact fair to good. Motor activity appropriate. Speech within normal limits. Affect congruent, mood anxious and euthymic. Thoughts linear, logical, no signs of hallucinations or delusions. Client Response/Progress/Benefit: []Pt a semi-active participant AEB providing input and personal examples to discussion and listened attentively to others. Pt did well to connect with the discussion reviewing three categories of skills for managing anxiety which included mind-based, body-based, and self-soothing. Pt contributed and took notes as group brainstormed various skills within the different categories. Pt provided example of cooking as a mind-based activity. He did well to identify a skill he is willing to practice in each area which included self-soothing as: gardening; mind-based: body-scan, and body-based: going for more walks. Pt seemed to benefit from increased awareness of healthy skills to manage anxiety related symptoms and in identifying skills willing to practice outside treatment environment. Progress seen in increased insight and small improvements with consistent application of emotion regulation skills outside treatment environment though continues to struggle with avoidance. Recommended to continue IOP level of care to increase healthy coping skills, continue to promote communication skills, and prevent decompensation. Narrative Note: []
--- NOTE | 2019-10-27 10:17 | BH.SGPN.GN ---
Behaviors/Verbalizations/Mental Status: []Client alert and oriented, neatly dressed and groomed. Eye contact good. Motor activity appropriate. Speech within normal limits. Affect congruent, mood euthymic. Thoughts linear, logical, no signs of hallucinations or delusions. Client Response/Progress/Benefit: []Client receptive of session, engaged throughout. He did well to work with the group to reflect on the quote and discussed the ways in which perspective can impact mental health and one's outlook on stressors. Client shared other people's mood can impact perspective. Client agreed with peers that when other people are negative, it can make him negative. Contributed to group discussion on how one develops perspective. Client worked with group to identify how negative perspective can impact mental health which included: unrealistic expectations, self-sabotage, maintain depression and anxiety, overgeneralizing, increased distorted thoughts, and decreased self-confidence. Client shared having a positive or open-minded perspective can help a person overcome challenges and cope more effectively. Client appeared to benefit from increasing understanding of mental health benefits of a positive perspective and potential consequences to progress when perspective is negative. Progress noted as shown by client's report of not avoiding a conversation with his . Will continue IOP tx as client can continue to improve interpersonal effectiveness skills and increase the use of healthy coping skills. Narrative Note: []
--- NOTE | 2019-10-27 13:31 | BH.MDN ---
Multi-Disciplinary Note - Note 30-min Individual Time Started:: 11:30 Date: 10/27/19 Purpose of session/treatment goals addressed:: The purpose of this session was to address current stressors, symptoms, and recent conversation with . Another goal was to complete the DSM-5 to review progress and start establishing an aftercare plan. Eye Contact:: Good Motor Activity:: Appropriate Appearance:: Neat Speech:: Appropriate Mood:: Euthymic Affect:: Congruent Thoughts:: Linear, Logical, No evidence of hallucinations/delusions noted Staff Interventions:: Therapist used active listening and open-ended questions to explore client's current stressors, symptoms, and application of coping skills. Therapist provided praise to empower client on having a conversation with his rather than continuing to avoid. Therapist processed the conversation with client and helped client identity his plan of action moving forward. Therapist assisted client in identifying questions he still has for his to help client reduce ambiguity. Therapist gave client options for aftercare and helped client connect with outpatient providers at [facility] during session. Client Response:: Client responded well to session, open to meeting with therapist. Client reports his conversation went well with his , sharing what he said kind of surprised me. Client reported that based on the conversation with , it was decided that their divorce will be put on hold. Client shared his did not want to move forward without knowing what client wanted to do. Client reported he still has some questions for his about their future. Client shared he wants to ask his how deep his love is, if he is open to marriage counseling, and how the two of them can work together to communicate better. Client reported communication has never been the couple's strength which has caused many problems in their relationship. Client receptive to having this conversation before his next individual session. Client reported he is looking forward to getting back to work in a couple of weeks and would like to communicate the need to have a better work life balance. Client also receptive to establishing aftercare during session. Client able to get into [facility] tomorrow for an intake. Risks/Concerns:: Client denies any suicidal ideations, plan, or intent as of 10/27/19. Progress Toward Goals/Plan:: Client continues to show progress towards his treatment goals as shown by client communicating with his and continuing to report application of coping skills. Additionally, client?s overall DSM-5 scores have decreased, but his anxiety scores went up by one point. Client acknowledges that his anxiety is higher right now because he is trying to face anxious situations rather than avoid. Client continues to struggle with anxiety, ruminations, and mild depressive symptoms. Will continue IOP tx to promote mood stability, improve healthy emotional regulation skills, and further decrease avoidance behaviors. Time Stopped:: 12:05
--- NOTE | 2019-10-27 13:58 | BH.TPR ---
Treatment Plan Review Date of Treatment Plan Review:: 10/27/19 Admitting Diagnoses:: Major depressive disorder recurrent severe without psychosis F33.2; history of opiate use disorder Current Diagnoses:: Major depressive disorder recurrent severe without psychosis (improving); history of opiate use disorder
--- NOTE | 2019-10-28 09:06 | BH.SGPN.GN ---
Behaviors/Verbalizations/Mental Status: []Client alert and oriented, appropriately groomed and casual in appearance. Eye contact fair to good. Motor activity appropriate. Speech within normal limits. Affect congruent, mood anxious, euthymic. Thoughts linear, logical, no signs of hallucinations or delusions. Reviewed daily symptom tracker and client denies suicidal ideation, plan, or intent at this time. Client Response/Progress/Benefit: []Pt receptive of session, mostly engaged throughout AEB listening to others share and openly processing with the group. Identified emotion for the day as ?sleepy?. Pt did well to identify current mental health wins and indicated that one win was taking the initiative to finally follow through with the homework of taking to his about their relationship plans moving forwards. Shared that this had been a difficult but necessary step and was proud of himself for not continuing to avoid. Pt noted that another win is being able to spend some time outdoors with his dog and expressed that this always helps to improve his mood. Expressed that a current stressor is a bill he just realized he had forgotten to pay and is now going to be late on; however, did well not to catastrophize and instead recognize that he could pay when he returns home this afternoon. Appeared to benefit from group support and identifying areas of progress, as well as challenging anxious thoughts. Recommended continued IOP tx to further promote healthy change behaviors, maintain stability, and prevent decompensation.?? Narrative Note: []
--- NOTE | 2019-10-28 10:00 | BH.COMM ---
Communication Note - Communication with Client Communication Note: Client's therapist, Darcie, discussed with this nurse that client needed a refill on Zyprexa medication. Discussed with Dr. Mcgregor. Telephone order called in to [facility] in [place] for refill. Message left for client to update.
--- NOTE | 2019-10-29 09:01 | BH.SGPN.GN ---
Behaviors/Verbalizations/Mental Status: []Client alert and oriented, casual dress, hygiene tended to. Eye contact fair. Motor activity restless. Speech within normal limits. Affect could not be assessed due to requirement of needing to wear a mask to prevent spread of COVID-19. mood agitated. Thoughts linear, logical, no signs of hallucinations or delusions. Client Response/Progress/Benefit: []Pt responded well to session AEB pt sharing thoughts and feelings openly with group and listening attentively to peers. Pt identified currently feeling irritated because of having to wear a mask while at IOP. Pt complained that the masks were uncomfortable and didn't see the point. Pt able to note mental health positive as having his first individual counseling session with new outpatient therapist yesterday. Pt reported additional mental health positive as spending time with a friend. Pt seemed to benefit from support from peers. Pt to continue IOP to increase healthy coping, decrease avoidance behaviors and prevent decompensation. Narrative Note: []
--- NOTE | 2019-10-29 11:18 | BH.SGPN.GN ---
Behaviors/Verbalizations/Mental Status: [] Client alert and oriented, neat and casually dressed and groomed. Eye contact good. Motor activity appropriate, often fidgeting with mask or taking it off. Speech within normal limits. Affect congruent to topic being discussed, mood irritable, anxious. Thoughts linear, logical, no signs of hallucinations or delusions. Client Response/Progress/Benefit: []Pt semi-active participant AEB providing some input throughout discussion, taking notes, and actively listening. At times struggled with attention due to becoming distracted by his face mask which pt often was fidgeting with. Pt participated in group discussion regarding mental health benefits of change which included personal growth, increased confidence, a ?fresh start?, and improved mental health. Pt identified small personal changes to improve mental health as: improve communication with supports, stop minimizing, and more openly discuss his mental health. Identified current barriers keeping pt from making those changes to be: avoidance, fear of embarrassment, habit, and negative thoughts. Pt appeared to benefit from gaining awareness of personal changes that would improve mental health and the barriers keeping client stuck. Progress noted in increased insight of barriers and areas for change for improved mental health, however, continues to struggle with healthy boundary setting. Continue IOP to increase healthy coping skills, reduce avoidance, and prevent decompensation. Narrative Note: []
--- NOTE | 2019-10-29 11:18 | BH.SGPN.GN ---
Behaviors/Verbalizations/Mental Status: []Client alert and oriented, casually dressed and groomed. Eye contact good. Motor activity appropriate. Speech within normal limits. Affect constricted, mood irritated. Thoughts linear, logical, no signs of hallucinations or delusions. Client Response/Progress/Benefit: []Client responded well to session, less vocal than previous sessions, but still participating when prompted. Client shared with the group his barriers for making the changes he identified in the previous group. These barriers included; fear of leaving his comfort zone, feeling like people do not understand him, denial, and justifying why he does not need to change. Client did well to select one change he would like to make and identifying a SMART goal to help client make this change. Shared he wants to work on increasing his communication with people in his life. Discussed that this change would help client have more clarity and less denial. Client?s goal was to start having more conversations with his in a smaller timeframe. Client benefited from working with group to identify strategies to overcome barriers to change and create a plan for implementing one small change promoting personal growth. Client recommended to continue IOP tx as he can continue to reduce anxiety and improve interpersonal effectiveness skills. Narrative Note: []
--- NOTE | 2019-11-02 09:05 | BH.SGPN.GN ---
Behaviors/Verbalizations/Mental Status: []Client alert and oriented, neatly dressed and groomed. Eye contact good. Motor activity appropriate. Speech within normal limits. Affect congruent, mood euthymic. Thoughts linear, logical, no signs of hallucinations or delusions. Reviewed client?s symptom tracker, no risk for suicidal ideation, plan, or intent as of 11/02/19. Client Response/Progress/Benefit: []Client responded well to session, providing supportive statements and attentive throughout. Client reports feeling neutral today sharing he is in a positive mood, but he is tired. Client stated he had a fun weekend and enjoyed the warm weather. Client shared he and his friend spent time together over the weekend baking, walking, and biking. Client reported it felt good to be active and get outside, but he was tired after. Client shared his friend also helped him apply for unemployment again because client got denied the first time. Client reported he is worried about finances, because client is not contributing to his household like he used to. Client able to challenge these thoughts by reminding himself that this is just temporary and that he contributes in other ways. Appeared to benefit from challenging anxious thoughts and reflecting on progress. Will continue IOP tx as client can benefit from reinforcing healthy coping skills, further decreasing anxiety, and improving emotional regulation. Narrative Note: []
--- NOTE | 2019-11-02 11:12 | BH.SGPN.GN ---
Behaviors/Verbalizations/Mental Status: []Eye contact is good. Motor activity is appropriate. Appearance is neat and casual. Speech is Appropriate. Mood is euthymic, anxious. Affect is congruent. Thoughts are linear and logical. No evidence of psychosis Client Response/Progress/Benefit: []Client receptive of session, semi-engaged and contributing to discussion when prompted. At times distracted by own thoughts. Provided some feedback to peers, asked questions, and completed goal setting worksheet. Client chose the goal; Spend at least 15 minutes exercising daily for 7 days. When asked why this goal was important and beneficial to client's mental health he stated; It will improve self-confidence, make me feel stronger, and reduce negative self-talk. Identified the following barriers to completing this goal which included; it takes a lot of effort and lack of motivation. Identified solutions to barriers which included; plan for it and use opposite action, ask a friend to hold him accountable, and ask someone to workout with him. Benefited from this group by practicing how to develop a short-term SMART goals related to mental health. Will continue IOP tx to further decrease anxiety and avoidance, reduce negative thoughts, and improve healthy communication levels. Narrative Note: []
--- NOTE | 2019-11-03 09:03 | BH.SGPN.GN ---
Behaviors/Verbalizations/Mental Status: []Client alert and oriented, casual dress, hygiene tended to. Eye contact good. Motor activity appropriate. Speech within normal limits. Affect could not be assessed due to all pt's being required to wear a mask to decrease potential spread of coronavirus. mood euthymic and positive. Thoughts linear, logical, no signs of hallucinations or delusions. Reviewed client?s symptom tracker, pt denies current suicidal thoughts or intention to date. Client Response/Progress/Benefit: []Pt responded well to session AEB pt sharing thoughts and feelings and listening attentively to peers. Pt reported mental health positives as spending time outside sitting in the sun yesterday and taking his dog for a walk. Pt stated additional mental health positive as following through with his goal of spending 15 minutes exercising. Pt reported he had to use opposite action to get himself to complete the goal, but is happy he followed through. Pt stated his stressor is having to power wash his home which increases his anxiety since he has never done it before. Progress noted with pt reporting utilization of healthy coping skills. Pt continues to struggle with avoiding anxious situations, specifically difficult conversations with his . Pt to continue IOP to continue use of healthy coping, decrease avoidance of anxious situations and prevent decompensation. Narrative Note: []
--- NOTE | 2019-11-03 10:15 | BH.SGPN.GN ---
Behaviors/Verbalizations/Mental Status: []Client alert and orient. Appearance casual and appropriately groomed. Speech an appropriate rate and tone. Motor activity WNL. Mood euthymic, affect congruent to mood. No evidence of delusion or hallucinations.? Client Response/Progress/Benefit: []Pt receptive of session, engaged throughout the discussion though mostly passive throughout. Worked with the group to define healthy communication and it?s various attributes. Discussed benefits of healthy communications on mental health and maintaining healthy relationships which included: improved mood, increased ability to get your point across, needs are more likely to be met, and healthier relationships. Group additionally discussed potential barriers to communication including: shutting down, vagueness, fear of judgement, and past negative experiences. Pt receptive of and appeared to benefit from psychoeducation portion discussing different styles of communication. Provided examples at times. Pt noted identifying most with passive-aggressive communication and indicated often communicating through non-verbals. Explained that this has resulted in aggressive comments in the past. Progress noted in increased insight into personal communication styles and barriers. Pt to continue in IOP tx to promote healthy change behaviors, improve mood stability, and prevent decompensation. Narrative Note: []
--- NOTE | 2019-11-03 11:16 | BH.SGPN.GN ---
Behaviors/Verbalizations/Mental Status: []Client alert and oriented, casual dress, hygiene tended to. Eye contact good. Motor activity appropriate. Speech within normal limits. Affect-unable to gather because wearing a mask, mood euthymic. Thoughts linear, logical, no signs of hallucinations or delusions. Client Response/Progress/Benefit: []Client responded well to session AEB client listening attentively to others and providing input during discussion. Client further processed his communication style and ways in which being aggressive and passive aggressive has impacted client. Client stated he has a history of saying mean words or using phrases that are aggressive. Client shared growing up in [place] sometimes creates a barrier in communication ?because certain statements aren?t bad there.? Client reported he has tried to not use hurtful language as client witnessed how this impacted his relationship. Client worked with group to identify strategies to improve communication. Client listened attentively as the group reviewed the strategy DEAR MAN which is a technique to help individuals communicate needs more effectively. Client receptive to selecting one of the DEAR MAN strategies for homework to improve communication. Client to continue IOP to promote gains, reinforce healthy coping skills, and establish aftercare. Narrative Note: []
--- NOTE | 2019-11-03 14:13 | BH.MDN ---
Multi-Disciplinary Note - Note 30-min Individual Time Started:: 12:15 Date: 11/03/19 Purpose of session/treatment goals addressed:: The purpose of this session was to address current stressors, symptoms, and homework. Another goal was to set goals for the week to further improve client's interpersonal relationship skills. Eye Contact:: Good Motor Activity:: Appropriate Appearance:: Neat Speech:: Appropriate Mood:: Euthymic, Anxious Affect:: Congruent Thoughts:: Linear, Logical, No evidence of hallucinations/delusions noted Staff Interventions:: Therapist used active listening and open-ended questions to explore client's current stressors, symptoms, and application of coping skills. Therapist provided praise to empower client on his ability to regulate anger in healthier ways. Therapist reviewed client's homework to talk with his and processed this with client. Therapist explored the benefits of apologizing to his and continuing to have open communication. Therapist will continue to follow up with client on communication with . Client Response:: Client responded well to session, open to meeting with therapist. Client reports he talked to his somewhat about their furture. Client shared he approached the topic of couples counseling with his and he said he'd think about it. Client stated he will need to follow up with his about this, so they can develop a plan. Client reported he overall feels calm and relaxed, but he still worries about his relationship. Showing progress with addressing conflict rather than avoiding, but he self-reports still putting things off. Client continues to do well with homework and deadlines. Client stated he will have checked in with his about couples counseling by next session. Client also would like to address some other things with his before next session. Client would like to ask his how deep is your love and client would like to apologize. Client shared he and his have never apologized to each other for their multiple fights. Client reported belief if he were to apologize, it would reduce anxiety and bring relief for client. Risks/Concerns:: Client denies any suicidal ideations, plan, or intent as of 11/03/19. Progress Toward Goals/Plan:: Client continues to show progress towards his treatment goals as shown by client's continued improvement with communicating with his . Client also reports increased ability to manage anger and irritation in healthier ways. Client continues to struggle with anxiety about his relationship, but he is getting better at reducing avoidance behaviors. Client will continue IOP tx and discharge next week. Client can benefit from one more week of IOP to reinforce healthy coping skills, help client manage interpersonal relationship skills, and further reduce anxiety during this unsettling times of COVID-19 and unemployment. Time Stopped:: 12:40
--- NOTE | 2019-11-05 09:05 | BH.SGPN.GN ---
Behaviors/Verbalizations/Mental Status: []Client alert and oriented, casual dress, hygiene tended to. Eye contact good. Motor activity appropriate. Speech within normal limits. Affect congruent, mood euthymic. Thoughts linear, logical, no signs of hallucinations or delusions. Reviewed client?s symptom tracker, no risk of suicidal ideation, plan or intent as of 11/05/19. Client Response/Progress/Benefit: []Client responded well to session, attentive and provided supportive statements to peers. Client reports feeling excited today. Client shared he is excited because he did a lot of good things yesterday. Client stated he woke up in a bad mood, feeling irritable and annoyed, but client shared he turned his mood around. Client reported he went for coffee with a friend, baked, and went grocery shopping which made client feel happy. Client also got a book from his boss about [place] in the 1970s and in the book there is a picture that looks like client's grandmother's yard. Client stated he is excited to see if this his grandmother's yard. Client did not have any significant stressors today, per his report. Appeared to benefit from reflecting on his positives. Progress noted in client's application of healthy coping skills, but he can continue to work on addressing issues with his rather than avoiding. Will continue IOP tx to promote gains and further improve interpersonal effectiveness skills. Narrative Note: []
--- NOTE | 2019-11-05 10:14 | BH.SGPN.GN ---
Behaviors/Verbalizations/Mental Status: [] Client alert and orient. Appearance casual and appropriately groomed. Speech an appropriate rate and tone. Motor activity WNL. Mood anxious and euthymic, affect congruent. No evidence of delusion or hallucinations. Client Response/Progress/Benefit: []Client responded well to session, attentive throughout, providing limited input though remained engaged in discussion. Listened and participated throughout group discussion defining conflict and the differences between internal and external conflict. Group reported the benefits of addressing conflict included: increased self-confidence, increased trust in relationships, having needs be met, and preventing further conflict from arising. Group additionally identified and discussed consequences of not addressing conflict in healthy ways which included: decreased self-esteem, damaged relationships, increased mental health symptoms, and additional stressors developing as a result. Benefited as client was able to identify current conflict style and how it impacts mental health. He noted often using avoiding and accommodating approaches to conflict in the past. Shared wanting to work on being more directive when approached with conflict as avoiding has resulted in negative self-talk and needs not getting met. Progress noted as shown by client?s report of improved mood and reduced use of avoidance in confrontational settings. Will continue IOP tx to promote application of healthy communication skills, reduce mental health sx severity, and further improve daily functioning. Narrative Note: []
== END 2019-11-05 23:59 ==
LOC: BHIOP 09:00
PROVIDERS: PCP Internal Medicine Infectious Disease; Referring Provider Psychiatry & Neurology Psychiatry; Visit Provider Psychiatry & Neurology Psychiatry
DX: F32.2 Major depressive disorder, single episode, severe without psychotic features (principal); F11.90 Opioid use, unspecified, uncomplicated; B20 Human immunodeficiency virus [HIV] disease; Z79.899 Other long term (current) drug therapy
CPT/HCPCS: H0035; H2012; H2020; 90832; 90834; 90853

== ENCOUNTER 2019-11-09 09:00 | Outpatient (RCR) | payer OTHER, SELFPAY ==
[2019-09-16 07:57] VITALS: BMI 22.3
[2019-11-06 00:19] VITALS: BP 108/58; PULSE 76; RESP 16
--- NOTE | 2019-11-09 09:08 | BH.SGPN.GN ---
Behaviors/Verbalizations/Mental Status: []Client alert and oriented, appropriately groomed, neat and casual in appearance. Eye contact fair to good. Motor activity appropriate. Speech within normal limits. Affect congruent, mood euthymic, tired. Thoughts linear, logical, no signs of hallucinations or delusions. Reviewed daily symptom tracker and client denies suicidal ideation, plan, or intent at this time. Client Response/Progress/Benefit: []Pt receptive of session, actively engaged throughout AEB attentively listening to others and openly processing with the group. Limited feedback and mostly passive in participation. Identified emotion for the day as ?sleepy? as he had a productive but exhausting day yesterday. He did well to identify current mental health wins and indicated that one win was following through with plans to pressure wash his house. Pt shared that this was a win as it allowed him to step outside his comfort zone and safely work on his fear of heights with support from his . Pt noted that another win is being able to reach out to his mother and grandmother in [facility] to spend time catching up. Shared this helped to remind him of the positive supports in his life. Expressed that his current stressor is his upcoming discharge scheduled for later in the week. Able to see that some anxiety is good as it means he is paying attention and wants to succeed. Appeared to benefit from group support and identifying his areas of progress. Recommended continued IOP tx to further promote healthy change behaviors, maintain stability, and prevent decompensation while completing aftercare planning.?? Narrative Note: []
--- NOTE | 2019-11-09 10:15 | BH.SGPN.GN ---
Behaviors/Verbalizations/Mental Status: []Client alert and oriented, casually dressed and groomed. Eye contact good. Motor activity appropriate. Speech within normal limits. Affect congruent, mood euthymic. Thoughts linear, logical, no signs of hallucinations or delusions. Client Response/Progress/Benefit: []Client responded well to session, attentive and engaged throughout session and activity. Client appeared to connect with the topic of fear of failure. Client participated in the discussion famous failures and how one?s response to setbacks is what truly matters. Group discussed common initial reactions to failure which included; hopelessness, negative self-talk, self-sabotage, and disappointment. Client connected with the concept that mindset is powerful in determining how a person moves forward after failing. Client shared ?progress is about how we handle the obstacles.? Connected with fear of failure and how fear of failure can impact one?s mental health. Engaged and positive during the group activity. Client progressing with increase healthy coping skills and being more assertive, but he can continue to reduce avoidance behaviors. Will continue IOP tx to increase interpersonal effectiveness skills and promote mood stability. Narrative Note: []
--- NOTE | 2019-11-09 11:20 | BH.SGPN.GN ---
Behaviors/Verbalizations/Mental Status: []Client alert and oriented, casual dress, hygiene tended to. Eye contact good. Motor activity appropriate. Speech within normal limits. Affect could not be assessed due to all patients needing to wear masks to prevent potential spread of coronavirus. mood anxious. Thoughts linear, logical, no signs of hallucinations or delusions. Client Response/Progress/Benefit: []Client responded well to session, participating during the group activity and willing to complete the worksheet. Client completed the fear of failure worksheet and reported that fear of failure is keeping client from communicating honestly, especially with his . Client stated he fears his husbands reaction will be negative. Client able to identify barriers that reinforce his fear of failure which included; negative self-talk, overthinking, lack of motivation, focus on others opinions, and indirect communication. Client attentive during discussion of the different strategies to help overcome fear of failure. Group identified strategies such as; positive self-talk, thought challenge, opposite action, keeping track of wins, setting smart goals, and accepting that mistakes happen. Client appeared to benefit from learning ways to overcome fear of failure. Will continue IOP tx to continue use of healthy coping skills to manage anxiety and prevent decompensation. Narrative Note: []
--- NOTE | 2019-11-11 10:16 | BH.SGPN.GN ---
Behaviors/Verbalizations/Mental Status: []Eye contact is good. Motor activity is appropriate. Appearance is casual. Speech is Appropriate. Mood is dysthymic and anxious. Affect is congruent. Thoughts are linear and logical. No evidence of psychosis. Client Response/Progress/Benefit: [] Participated throughout group discussion, providing some input and listening attentively. Mostly passive participation. Engaged during psychoeducation portion reviewing fixed mindset. Pt worked with group to identify how a fixed mindset can impact our mental health which included: decreased motivation, giving up when faced with a setback, not asking for help, low self-esteem, and isolation/avoidance. Pt identified one fixed thought he has is, My marriage won?t get better?. Pt did well to recognize that this fixed thought leads to hopelessness, increased anxiety and depression, and irritability. Recognized that this fixed thought has resulted in shutting down and avoidance in the past. Benefited from group by increasing awareness of how one's mindset impacts mental health. Pt to continue IOP level of care to increase utilization of healthy coping skills, challenge distorted thoughts, and prevent decompensation. Narrative Note: []
--- NOTE | 2019-11-11 10:30 | BH.MDN_ITS ---
Multi-Disciplinary Note - Note 30-min Individual Time Started:: 09:40 Date: 11/11/19 Purpose of session/treatment goals addressed:: The purpose of this session was to review client's progress and review strategies that will promote mood stability and gains made in [facility]. Another goal was to discuss discharge recommendations and process emotions. Eye Contact:: Good Motor Activity:: Appropriate Appearance:: Neat Speech:: Soft Mood:: Anxious, Other - sad Affect:: Constricted Thoughts:: Linear, Logical, No evidence of hallucinations/delusions noted Staff Interventions:: Therapist used open-ended questions to explore client's thoughts on personal progress. Therapist also provided emotional support and helped client process emotions about discharge. Therapist reviewed supports, warning signs, and coping skills with client to promote gains and prevent setbacks. Therapist discussed aftercare plan with client and used strengths- perspective to empower client on the goals client has accomplished. Therapist discussed the benefits of ongoing maintenance and use of daily coping skills. Therapist gave client a quote collage for closure. Client Response:: Client responded well to session, open to meeting with therapist. Client reports feeling sad and anxious today because tomorrow is his last day. Client is also sad and anxious about the future of his marriage. Client reported his does not want to seek marriage counseling. Client also shared that he apologized to his , but he didn't really say anything. Client stated he felt disappointed about his not acknowledging the apology. Client receptive to processing his emotions and discussing his worries about the relationship. Client recognizes that he needs to continue having conversations with his . Client reported I don't like to have them but he is able to see the benefits. Client self-identified progress in his increased ability to have conversations with his and face anxious situations. Client also self-reported progress in improved ability to manage emotions which has helped client better communicate and prevent unwanted responses. Client shared he is sad to be leaving [facility], but he acknowledges he has made great progress. Client still willing to participate in the aftercare program at [facility] and to follow up with his outpatient providers. Risks/Concerns:: Client denies any suicidal ideations, plant, and intent as of 11/12/19. Progress Toward Goals/Plan:: Client has responded well to treatment and has made great progress while in [facility]. Client is anxious and sad about leaving, but he recognizes he has made progress and no longer meets criteria for [facility] level of care. Client reports increased ability to manage his emotions, better communication, less depression, no suicidal ideations, and less anxiety overall. Client still has anxiety and sadness about the future of his marriage and he will continue to work on this. Will discharge from [facility] tomorrow and continue with outpatient treatment and [facility] aftercare program. Time Stopped:: 10:00
--- NOTE | 2019-11-11 11:20 | BH.SGPN.GN ---
Behaviors/Verbalizations/Mental Status: []Client alert and oriented, neatly dressed and groomed. Eye contact fair. Motor activity appropriate. Speech within normal limits. Affect unable to gather due to client wearing a mask as part of COVID-19 protocol. mood anxious. Thoughts linear, logical, no signs of hallucinations or delusions. Client Response/Progress/Benefit: []Client engaged during discussion and listened attentively to peers. Watched the video on growth mindset versus fixed mindset and participated in discussion. Client did not want to share his reframed thought, but he was taking notes throughout session and listened to peers. Often nodding when the group discussed the benefits of having a growth mindset. Benefitted from discussing benefits of growth mindset and brainstorming strategies for prompting growth-mindset. Client is doing well to apply coping skills outside of the group setting. Will continue IOP tx to promote gains and further increase emotional regulation skills. Narrative Note: []
--- NOTE | 2019-11-11 12:26 | PCM.BH.PN_ITS ---
Progress Note Progress Note: History of Present Illness/Interim History: [] The patient is a 39-year-old male who is seen in follow-up at the [facility] behavioral health IOP program. I last saw the patient about 1 month ago. He is being treated for depression and has been doing pretty well overall in the past month. He feels the IOP program is really benefiting him and he is learning skills that he are valuable. He states that he will be discharged from the IOP program soon and is a little anxious about what he will occupy his time with when he is finished with the program. He is not sure about the future and what his routine will be. He is encouraged that he has an appointment with a new counselor on November 19, 2019. He is living with his still and is not sure if they will divorce in the future. The marriage is on hold right now and the patient now is the one who will decide if they proceed to divorce. The patient says this is better than before when it was his who wanted to divorce. But the patient is not sure if they should divorce or stay together. His will not get marriage counseling. He denies any suicidal or homicidal ideation. He denies any passive thoughts of . He denies any hallucinations or delusions. He has been compliant with his me dications. Current Psychiatric Medications: [] Zyprexa 10 mg p.o. nightly Mental Status Examination: [] Patient is a 39-year-old male who appears younger than stated age and is casually dressed and groomed with good hygiene. He is wearing a mask during the interview due to the pandemic. He has good eye contact and his speech is normal rate and rhythm and fluent with no pressure. He has no psychomotor agitation or retardation. He is cooperative and pleasant during the interview. His mood is euthymic. His affect is full and normal. His thought process is goal-directed and organized. His thought content: No evidence of suicidal or homicidal ideation. No evidence of hallucinations, delusions or thoughts of . Judgment is intact. Impulsivity is low. Insight is good. 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 He has benefited from the support, education, structure and group therapy of the program. If his symptoms worsen or he does not feel safe he agrees to go to the emergency room or tell us while he is at the IOP program. He agrees to follow-up with his new psychiatric provider on November 19, 2019. The risk, options, possible complications and side effects of medications were discussed with the patient and he understands and accepts these. He will continue to follow-up with his outpatient medical and psychiatric providers.
--- NOTE | 2019-11-12 08:15 | BH.AFTERPLAN ---
Aftercare Plan - Demographics Treatment End Date:: 11/12/19 Psychiatrist:: Aviva Cervantes Psychiatrist Office #:: [phone] [facility]/IOP Therapist:: Darcie Lewis Therapist Phone #:: [phone] - Medications Home Medications: Home Medications Emtricita/Rilpivirine/Tenof Df [Complera Tablet] 1 tab PO DAILY 09/16/19 Olanzapine [Zyprexa] 10 mg PO QHS 09/30/19 busPIRone [Buspar] 20 mg PO TID PRN 09/30/19 - Plan Details Progress/Aftercare Plan Details:: Ashu has made significant strides since starting IOP as shown by his improved mood and increased ability to cope with anxiety and anger. When Ashu started IOP he was experiencing a depressed mood, increased anxiety and anger, and difficulty coping with marital issues. Ashu had been feeling lost, sad, and anxious about the future. He was also avoiding talking about issues. Now, Ashu is able to regulate his anger, use healthy coping skills more consistently, and has increased his social connections. Ashu has more awareness of his mental health warning signs and triggers which has helped him make choices that support his wellbeing. Ashu has shown progress in boundary setting and communicating with his . Ashu has been embracing ?doing the anxious thing? even though it is hard. Ashu reports an improved mood, better coping, and decreased responsiveness to anger. Ashu experienced stressors while in IOP, but he was able to maintain mood stability which is significant. Ashu plans to continue outpatient counseling. Ashu sees Nava Soria at [facility] for individual counseling. His next appointment is 11/19/19. Ashu is also encouraged to participate in the [facility] IOP aftercare program. Ashu will be seeing his primary care physician for medication management. Strategies for Success:: 1.Communicate! :) I know it sucks?.but it has more benefits than costs and it helps you get clarity. 2. Maintain a routine, especially now that you do not have IOP three times a week. Make sure to still get up, get out of the house, and spend time doing self-care each day. 3. Continue to foster a positive outlook by challenging your perspective. Look for the positives and ask yourself how you can learn from a difficult moment. 4.Continue to set boundaries and remember that setting boundaries means loving yourself. 5. Practice self-reflection and maintain self-awareness. This means recognizing warning signs, communication barriers, and stress levels. 6. Open communication! Remember to listen and then respond. Communicate breaks and avoid hurtful language. 7. Practice mindfulness and use your relaxation skills such as coloring, walking, baking, and spending time with friends. 8. Continue to challenge negative thoughts. 9. Weigh the pros and cons! Ask yourself ?am I willing to live with the costs of not changing.? 10. Give yourself credit!! You have worked so hard!! - Appointments Appointments/Referrals to Other Services:: 1. Follow up with Nava at [facility] on 11/19/19. 2. Follow up with me on 11/25/19 at 1:00pm. 3. Follow up with your primary care for medication refills 4. [facility] IOP aftercare program starting potentially 11/19/19.
--- NOTE | 2019-11-12 09:06 | BH.SGPN.GN ---
Behaviors/Verbalizations/Mental Status: []Client alert and oriented, casual dress, hygiene tended to. Eye contact fair to good. Motor activity appropriate. Speech within normal limits. Affect congruent, mood anxious and euthymic. Thoughts linear, logical, no signs of hallucinations or delusions. Reviewed client?s symptom tracker, pt denies current suicidal thoughts or intention to date. Client Response/Progress/Benefit: []Pt responded well to session AEB pt sharing thoughts and feelings as well as listening attentively to peers. Pt reported mental health positive as today being his last day in the IOP program. Spent time reflecting on areas of progress such as reduced anxiety and avoidance, increased follow through, and improved mood management. Pt identified additional mental health win as making plans to continue working on his mental health via the aftercare program. Pt stated it felt positive to be able to reflect upon overall progress in tx. Pt stated current stressor is ongoing anxiety about continuing to make gains in mental health management skills post discharge. Pt to discharge from IOP and continue tx at the outpatient level of care to continue to improve consistent use of healthy coping and prevent decompensation. Narrative Note: []
--- NOTE | 2019-11-12 10:13 | BH.SGPN.GN ---
Behaviors/Verbalizations/Mental Status: []Client alert and oriented, casual dress, hygiene tended to. Eye contact good. Motor activity appropriate. Speech within normal limits. Affect congruent, mood euthymic. Thoughts linear, logical, no signs of hallucinations or delusions. Client Response/Progress/Benefit: []Pt passive participant AEB pt providing limited input during group discussions, however did appear to listen attentively to peers and take notes throughout. Group identified the following makes up a support system include: pets, friends, self-accountability, family, medication, co-workers/HR, community agencies, therapist and other providers, group members, self-care/hobbies, inspirational videos, jehovah's witness and spirituality.When discussing different types of support, pt noted can use support of co-workers by asking for help or communicating if having a rough day. Seemed to benefit from increased awareness of different supports available and identifying benefits of social support. Pt has made significant progress since starting IOP and will discharge from IOP today. Narrative Note: []
--- NOTE | 2019-11-12 11:14 | BH.SGPN.GN ---
Behaviors/Verbalizations/Mental Status: []Client alert and oriented, casually dressed and groomed. Eye contact good. Motor activity appropriate. Speech within normal limits. Affect unable to gather due to wearing a mask as a precaution for COVID-19, mood euthymic and anxious. Thoughts linear, logical, no signs of hallucinations or delusions. Client Response/Progress/Benefit: []Client an active participant AEB taking notes and sharing during the group discussion. Client participated in group discussion about the different types of support and benefits different types of support can provide. Client identified he would like to increase social supports in the area of self-help by focusing on using his grounding techniques that he has learned in group. Client stated he wants to do this by getting back into using apps that have helped client in the past. Client shared this will help client feel more clam and more present. Client reported his barrier to seeking this support is lack of motivation, but client shared when he does not have motivation, he uses opposite action. Appeared to benefit from identifying the type of support client wants to improve and identifying ways to work towards improving this support. Will discharge from IOP today as client has made significant strides towards his treatment goals and no longer meets criteria for IOP level of care. Narrative Note: []
--- NOTE | 2019-11-12 14:06 | BH.DS_ITS ---
Discharge Summary - Demographics Date of Admission:: 09/28/19 Discharge Date: 11/12/19 Presenting Problems at Admission:: Client is a 39-year-old male with a history of depression and anxiety. Prior to starting IOP, client was admitted to [facility] from 09/16/19-09/21/19 due to a suicide attempt. Client reported he took two Benadryl with a glass of wine. Client also left a suicide note for his , which his found the next morning and called 911. Client described the attempt as silly, I just wanted to make my feel something. I don't think I really wanted to . Client's discharge notes from [facility] indicated opiate use on their tox screen, but client denies any opiate use. At time of admission, client?s primary stressors included marriage issues and lack of support. Client was born and raised in [place] and he moved to [facility] two years ago. Additionally, at admission, client reported difficulty adjusting, erratic moods, anxiety, feeling lost, and angry. Client's symptoms were impacting his occupational, social, and familial functioning. Discharge Diagnoses:: Major depressive disorder recurrent severe without psychosis F33.2; history of opiate use disorder Reason for Discharge:: Client has made significant progress as evidenced by his reduced DSM-5 scores, self-report of using healthier coping skills, and improved communication. Client has met his treatment goals and no longer meets criteria for IOP level of care. - Treatment Progress During Treatment & Response: Client responded well to treatment as shown by his overall consistent attendance, active participation, and reduction of overall DSM-5 symptoms. Client was an active participate who frequently contributed to discussions and took notes. Client often connected with peers and provided supportive statements. In individual sessions, client was receptive to learning new coping skills and was engaged in his treatment. Client followed through with his homework which often involved client communicating with his and facing anxiety-producing situations rather than continuing to avoid them. Per client?s report, he was consistently applying opposite action and reported progress in managing his anger. Client self-identified his progress as being less reactive to anger, better stress management, increased engagement in activities he enjoys, and improved communication with his . At discharge, client?s DSM-5 symptom scores decreased by 70%. Client?s DSM-5 scores for depression decreased by 50%, anxiety decreased by 50%, and anger decreased by 100%. Additionally, at discharge client denied having any passive thoughts of or suicidal ideations. Issues Still to be Addressed:: Client has done well to reduce the intensity of his symptoms, but he can benefit from continued counseling to reinforce healthy coping skills and further improve mood stability. Client was working on becoming more assertive in his communication with his and reducing avoidance behaviors. Client can benefit from ongoing work on these areas. Lastly, client can continue to increase his social supports in the [place] area. Discharge Recommendations/Instructions:: Client is encouraged to follow up with Nava Soria at [facility] for outpatient counseling. Client has an appointment via telehealth on 11/19/19. Client also reports plans to start [facility] aftercare group that starts 11/19/19. The aftercare group will be once a week. Client was provided with information for [facility] to set an appointment for outpatient psychiatry. Discharge Handout: Complete Discharge Handout with client on aftercare options and continuity of care.
== END 2019-11-12 14:00 | disposition home or self-care (01) ==
LOC: BHIOP 09:00
PROVIDERS: PCP Internal Medicine Infectious Disease; Referring Provider Psychiatry & Neurology Psychiatry; Visit Provider Psychiatry & Neurology Psychiatry
DX: F32.2 Major depressive disorder, single episode, severe without psychotic features (principal); F11.90 Opioid use, unspecified, uncomplicated; B20 Human immunodeficiency virus [HIV] disease; Z79.899 Other long term (current) drug therapy
CPT/HCPCS: H0035; H2020; 90832; 90853

== ENCOUNTER 2019-11-19 14:00 | Outpatient (RCR) | payer OTHER, SELFPAY ==
[2019-09-16 07:57] VITALS: BMI 22.3
--- NOTE | 2019-11-19 14:00 | BH.SGPN.GN ---
Behaviors/Verbalizations/Mental Status: []Client alert and oriented, casual dress, hygiene tended to. Eye contact fair. Motor activity appropriate. Speech within normal limits. Affect congruent, mood euthymic. Thoughts linear, logical, no signs of hallucinations or delusions. Client Response/Progress/Benefit: []Pt reported since discharging from [facility] last week he has overall been doing well with keeping himself busy and focusing on trying new things to stay occupied while at home. Pt stated he is able to find new tasks and home projects to keep him entertained during the pandemic. Pt reported he has some frustration with his and admits he hasn't communicated his thoughts or feelings. Pt engaged in brainstorming of various daily routine ideas. Pt completed task of creating a daily morning routine. Pt stated his morning routine will be: wake up by 9am, shower, personal hygiene, breakfast, daily mantra, and complete some chores. Pt agreeable to work on homework of finishing his routine to include afternoon and evening. Pt seemed to benefit from support from peers and learning about benefits of routine. Pt's first day in aftercare group. Pt to continue aftercare group to improve consistent use of healthy coping, decrease avoidance and prevent decompensation. Narrative Note: []
--- NOTE | 2019-11-19 14:06 | BH.MTP ---
Master Treatment Plan - Patient Information Program Physician:: Dr. Aviva Cervantes Primary Therapist:: Darcie Lewis - Psychiatric Diagnoses Psychiatric Diagnoses:: Major depressive disorder recurrent severe without psychosis F33.2; history of opiate use disorder Diagnosis Code(s):: F 33.2 - Estimated LOS Estimated LOS (in weeks):: 12 Problem/Goal #1 - Problem/Goal #1 Stated Goal:: client will maintain or see a reduction in symptoms AEB client score on the DSM 5 cross-cutting measure and improve client's daily functioning. - Objectives Objective #1 Stated Objective: Client will continue to consistently apply healthy coping skills to maintain progress made in IOP tx. Interventions: Through group therapy, client will review warning signs and triggers as well as healthy coping skills learned in IOP tx to successfully maintain gains while transitioning into outpatient therapy. Discharge Criteria: Client will have accomplished this goal when client's score on the DSM-5 cross-cutting measure has either maintained or reduced over a 12 week period. Target Date: 02/11/20 Review Date: 12/31/19 Status: open Objective #2 Stated Objective: Client will learn and utilize 2-3 maintenance strategies to prevent decompensation. Interventions: Through group therapy, client will be provided with education on healthy maintenance behaviors, relapse prevention techniques, and healthy coping strategies. Discharge Criteria: Client will have accomplised this goal when can report using at least 2 maintenance skills to prevent decompensation. Target Date: 02/11/20 Review Date: 12/31/19 Status: open
--- NOTE | 2019-11-27 14:06 | BH.SGPN.GN ---
Behaviors/Verbalizations/Mental Status: []Client alert and oriented, casual dress, neat, hygiene tended to. Eye contact good. Motor activity appropriate. Speech within normal limits. Affect congruent, mood euthymic. Thoughts linear, logical, no signs of hallucinations or delusions. Client Response/Progress/Benefit: [] Pt receptive of session, engaged throughout. Notes feeling ?tired but positive? today as he was able to complete the housework and spoke with unemployment about receiving assistance, which has been a source of stress recently. Shared accomplishing part of his routine goal from last week but struggled to wake up by 9am as planned. Receptive of discussion on personal accountability and it?s importance in maintaining mental health stability. Pt worked cooperatively with group to identify benefits of maintaining personal accountability. Engaged in discussion on different accountability styles and brainstorming strategies for improving ability to hold themselves accountable. Pt identified that for homework he would like to create a daily ?to-do list? and put it on his fridge as a visual reminder to hold himself accountable for working on current goals. Pt seemed to benefit from support from peers and increasing understanding of personal accountability benefits and strategies. Progress noted in ability to complete a majority of last week?s daily routine homework. Pt to continue aftercare group to improve consistent use of healthy coping, maintain stability, and prevent decompensation. Narrative Note: []
--- NOTE | 2019-12-03 14:05 | BH.SGPN.GN ---
Behaviors/Verbalizations/Mental Status: []Client alert and oriented, casual dress, hygiene tended to. Eye contact good. Motor activity appropriate. Speech within normal limits. Affect unable to gather due to client wearing a mask for COVID protocol, mood euthymic. Thoughts linear, logical, no signs of hallucinations or delusions. Client Response/Progress/Benefit: []Client responded well to session, attentive and engaged throughout. Client reported he has been very active since last week. Client shared he has been baking, coloring, getting out in the sun and doing house work. Client the beginning of his week started out frustrating, because his was asking client to do a lot of manual labor. Client stated he got snappy with , but then he apologized. Client reported the coping skills he used this week to help him accomplish goals were; opposite action, open communication, and mindfulness. Client stated his stressor today is that he has to do even more house work when he gets home. Client participated in the discussion of making healthy choices and the barriers keeping clients from making healthy choices. Client identified his personal barriers to be lack of motivation and feeling obligated. Client reported he would like to make healthier decisions with work and exercise. Client shared having a better work-life balance would reduce stress and improve self-care. Additionally, exercising more would improve client's physical health and self-esteem. Client attentive and contributing to discussion of strategies to improve healthy decision making. Client selected the strategy of creating a pros and cons list about returning to the gym for his game plan this week. Appeared to benefit from reflecting on application of coping skills, identifying barriers, and creating a game plan to improve healthy decision making skills. Narrative Note: []
== END 2019-12-06 23:59 ==
LOC: BHOG 14:00
PROVIDERS: PCP Internal Medicine Infectious Disease; Referring Provider Psychiatry & Neurology Psychiatry; Visit Provider Psychiatry & Neurology Psychiatry
DX: F33.2 Major depressive disorder, recurrent severe without psychotic features (principal); F11.90 Opioid use, unspecified, uncomplicated
CPT/HCPCS: 90853

== ENCOUNTER 2019-12-10 14:00 | Outpatient (RCR) | payer OTHER, SELFPAY ==
[2019-09-16 07:57] VITALS: BMI 22.3
--- NOTE | 2019-12-10 14:05 | BH.SGPN.GN ---
Behaviors/Verbalizations/Mental Status: []Client alert and oriented, casually dressed. Eye contact good. Motor activity appropriate. Speech within normal limits. Affect constricted, mood euthymic. Thoughts linear, logical, no signs of hallucinations or delusions. Client Response/Progress/Benefit: []Pt responded well to session AEB pt providing input during discussion and listening attentively to peers. Pt reported he accomplished his goal of making a healthier decision by choosing to go back to work at 35 hours a week versus returning to a 50+ hour work week. Pt stated working that much made it difficult to have a social life or engage in self-care, which he recognizes is not healthy for him. Pt engaged in discussion about self-love. Connected with others that engaging in self-love is not something she has been doing often. Pt worked with group to identify strategies to increase self-love. Pt reported he wants to work on self-love by taking time to calm his mind everyday and being more mindful. Pt seemed to benefit from reviewing treatment progress and stressors as well as learning about how to increase self-love. Pt to continue [facility] aftercare program to maintain treatment progress, continue use of healthy coping, and prevent decompensation. Narrative Note: []
--- NOTE | 2019-12-17 14:07 | BH.SGPN.GN ---
Behaviors/Verbalizations/Mental Status: [] Client alert and oriented, neat and casual dress, hygiene tended to. Eye contact fair to good. Motor activity appropriate. Speech within normal limits. Affect constricted, mood dysthymic. Thoughts linear, logical - at times appearing to ruminate or be preoccupied by own thought, no signs of hallucinations or delusions. Client Response/Progress/Benefit: [] Pt receptive of session, engaged though remaining a passive participant throughout. Notes feeling ?a little bit down? today as he had a rough conversation with his partner. Expressed not wanting to share further. Receptive of discussion on self-talk and its influence in maintaining long-term mental health stability. Pt listened to the group identify benefits of positive affirmations in improving self-talk and overall ability to better manage potential mental health setbacks. Nodding and taking notes during discussion on barriers impacting our ability to use or believe affirmation statements. Connected with the strategies for improving effective creation and application of believable personal affirmations. With assistance, Pt identified own personal affirmation statements he would like to begin using. Identified that he would like to improve ability to remember to apply positive self-talk statements. Progress limited as pt appearing to struggle with challenging his own ruminating thoughts. Pt to continue aftercare group to improve consistent use of healthy coping, maintain stability, and prevent decompensation. Narrative Note: []
--- NOTE | 2019-12-24 14:05 | BH.SGPN.GN ---
Behaviors/Verbalizations/Mental Status: []Client alert and oriented, neatly dressed and groomed. Eye contact good. Motor activity appropriate. Speech within normal limits. Affect unable to gather due to client wearing a mask for COVID-19 protocol. mood dysthymic. Thoughts linear and logical. No signs of hallucinations or delusions. Client Response/Progress/Benefit: []Client responded well to session, checked in using his GAPs worksheet. Client identified recent coping skills he has used such as affirmations, baking, getting outside, and exercise. Client shared his stressor today is his father was sick over the weekend. Client was attentive during the discussion of self-compassion, but he shared that it was a hard topic for him. Client connected with the benefits of self-compassion and shared it is not always easy for client to practice self-compassion. Client participated in the activity of reframing an old experience using self-compassion. 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 Client shared this thought led to client judging himself, over-apologizing, and being defensive. Client reframed this using self-compassion to I'm not experienced at painting and even a pro makes mistakes. Client reported this helps client feel more relaxed and forgiving to himself. Client appeared to benefit from practicing self-compassion. Narrative Note: []
--- NOTE | 2019-12-31 14:55 | BH.TPR ---
Treatment Plan Review Date of Admission:: 11/19/19 Date of Treatment Plan Review:: 12/31/19 Admitting Diagnoses:: Major depressive disorder recurrent severe without psychosis F33.2; history of opiate use disorder Current Diagnoses:: Major depressive disorder recurrent severe without psychosis F33.2; history of opiate use disorder Patient's Response to Treatment:: Client is engaged in IOP aftercare as evidenced by client's participation in group discussions and self-report of consistently applying coping skills. Client's DSM-5 scores have slightly increased since admission to aftercare. Client reports the increase of symptoms is due to situation stressors. Despite client's increase in scores, client's scores still fall within the slight range for symptom intensity. Status of Current Problems and Symptoms: Client reports ongoing work-related and martial stressors, some difficulty with assertively communicating his needs and boundaries, and occasional negative self-talk that reinforces anxiety and depression. Problem #1 Problem Name:: Pt. will maintain or see a reduction in sx AEB client score on the DSM-5 Status of Goals:: Objective 1- not complete- ongoing work encouraged. Client?s scores on the DSM-5 for depression and anxiety have increased by 50% since admission, but still fall into the slight range of intensity as the score is 2/8 for depression and 2/12 for anxiety, respectfully. Objective 2- complete with ongoing work encouraged. Client has been consistently reporting use of opposite action, exercise, grounding, reaching out to supports, and self-talk. Team Recommendations:: Recommended client continue IOP aftercare group in addition to attending regular outpatient counseling in order to reduce DSM-5 symptoms and promote consistent use of healthy coping skills.
== END 2020-01-05 23:59 ==
LOC: BHOG 14:00
PROVIDERS: PCP Internal Medicine Infectious Disease; Referring Provider Psychiatry & Neurology Psychiatry; Visit Provider Psychiatry & Neurology Psychiatry
DX: F33.2 Major depressive disorder, recurrent severe without psychotic features (principal)
CPT/HCPCS: 90853

== ENCOUNTER 2020-01-07 14:00 | Outpatient (RCR) | payer OTHER, SELFPAY ==
[2019-09-16 07:57] VITALS: BMI 22.3
--- NOTE | 2020-01-07 14:05 | BH.SGPN.GN ---
Behaviors/Verbalizations/Mental Status: []Client alert and oriented, neatly dressed and groomed. Eye contact good. Motor activity appropriate. Speech within normal limits. Affect unable to gather due to wearing a mask for COVID-19 protocol, mood euthymic. Thoughts linear, logical, no signs of hallucinations or delusions. Client Response/Progress/Benefit: []Client responded well to session, receptive to feedback and sharing supportive statements to peers. Client reports multiple mental health wins today and no stressors. Client reviewed his GAPs and shared he took the advice from group last week and brought up things he has been struggling with to his outpatient therapist. Client shared he talked about self-compassion with his outpatient therapist and it really helped. Client reports in the past week he has been using mindfulness, grounding, and more positive self-talk. Client reports no stressors today. Client participated in the group discussion of maintenance and the benefits of creating a maintenance plan. Client contributed as the group discussed what components make up a maintenance plan. Client created his own maintenance plan for depression. Client identified warning signs which included: shutting down, isolation, not eating, and messed up sleeping patterns. Client's coping skills included: advocating for a more balanced work schedule, opposite action, go for a walk, and making plans with close friends. Client reported he can also talk with his supports and schedule more therapy sessions when he recognizes warning signs. Appeared to benefit from creating a maintenance plan to promote gains and prevent setbacks. Will continue aftercare next week. Narrative Note: []
--- NOTE | 2020-01-14 14:00 | BH.SGPN.GN ---
Behaviors/Verbalizations/Mental Status: []Client alert and oriented, casual appearance. Eye contact good. Motor activity appropriate. Speech within normal limits. Affect congruent. Mood euthymic. Thoughts linear, logical, no signs of hallucinations or delusions. Client Response/Progress/Benefit: []Pt engaged in session as evidenced by pt openly sharing thoughts and feelings, listening attentively to others, and providing input throughout. Pt reported over the last week he accomplished his goal of engaging in maintenance skills. Pt stated he spent a lot of time outside and productive with getting things done. Pt reported he engaged in coloring, cooking, reading, and sunbathing. Pt engaged in discussion about benefits of self-care. Pt reported he believes he has been doing good overall with engaging in self-care since discharging from [facility]. Pt stated he hasn't been as good with taking care of his physical self-care. Pt stated for his self-care plan for the week he will engage in: getting coffee, cooking, spending time with family, going to therapy, walking, self-reflection, and and buy a small gift for himself. Pt seemed to benefit from creating a self-care plan to increase consistent use of self-care. Progress noted with pt reporting improved mood. Pt to continue aftercare group to continue use of healthy coping and prevent further decompensation. Narrative Note: []
--- NOTE | 2020-01-21 14:07 | BH.SGPN.GN ---
Behaviors/Verbalizations/Mental Status: [] Client alert and oriented, neat and casually dressed. Eye contact good. Motor activity appropriate. Speech within normal limits. Affect constricted, mood euthymic and anxious. Thoughts linear, logical, no signs of hallucinations or delusions. Client Response/Progress/Benefit: []Pt responded well to session AEB pt providing input during discussion and listening attentively to peers. Pt reported he feels as though ?step by step I?m slowly making progress? and indicated that over the past week he has felt more capable of managing his mental health symptoms. Reports this is due to making more of an effort to apply skills he has learned in group such as thought challenging and regular reflection. Pt went on to note that creating a concreate and structured self-care plan was particularly helpful in maintaining progress. Expressed plans to continue using a structured self-care plan. Pt actively engaged in discussion about self-advocacy. Connected with others that engaging in self-advocacy can be difficult when it involves setting or maintaining boundaries with loved ones. Connected with fellow participants who indicated struggling with self-advocacy out of fears of disappointing others or being a burden. Pt worked with group to identify strategies to overcome barriers and increase ability to advocate for oneself. Pt reported he wants to work on improving self-advocacy by using the mantra ?know, think, choose, do?, explaining a need to know what his stressors are, think about the options, choose one, and actively do it. Pt seemed to benefit from reviewing treatment progress and skill application, as well as learning about how to increase self-advocacy. Pt to continue aftercare program to maintain treatment progress, continue use of self-accountability and healthy communication with supports, and prevent decompensation. Narrative Note: []
--- NOTE | 2020-02-04 14:25 | BH.DS_ITS ---
Discharge Summary - Demographics Date of Admission:: 11/19/19 Discharge Date: 02/04/20 Presenting Problems at Admission:: Client discharged from IOP tx and transitioned to IOP aftercare to maintain gains he made in IOP and to reinforce healthy coping skills. At admission to IOP aftercare, client reported experiencing slight symptoms of anxiety and depression. Client was also experiencing life stressors including being unemployed due the the COVID-19 pandemic and ongoing relationship issues. Despite these stressors, client reported ability to cope with his mental health and was activity using healthy skills. Discharge Diagnoses:: Major depressive disorder recurrent severe without psychosis F33.2; history of opiate use disorder Reason for Discharge:: Client has demonstrated ability to maintain gains made in IOP aftercare AEB his overall DSM-5 scores remaining the same. Client's depression scores actually decreased from IOP aftercare admission to discharge. Additionally, client has accomplished treatment goals and no longer meets criteria for IOP aftercare level of tx. - Treatment Progress During Treatment & Response: Client was engaged in IOP aftercare as evidenced by client's participation in group discussions and self-report of consistently applying coping skills. Client's DSM-5 scores increased at time of treatment plan review, but client reports this was due to situational stressors. At discharge, client?s DSM-5 scores for depression decreased by 100%. Client?s scores for anxiety remained the same as admission at 07/19 which is within the slight range for intensity. At discharge, client was reporting an improved mood, consistent use of healthy coping skills, returning to work, and better communication skills. Issues Still to be Addressed:: Client can benefit from ongoing outpatient counseling and medication management to promote gains and reinforce healthy coping skills. Client can continue to work on assertive communication, thought challenging, boundary setting, and self-advocacy. Discharge Recommendations/Instructions:: Client is recommended to continue counseling with his outpatient therapist, Nava, at [facility]. Client sees Nava on a weekly basis and reports this to be helpful. Client is also encouraged to follow up with his outpatient providers for medication management. Discharge Handout: Complete Discharge Handout with client on aftercare options and continuity of care.
== END 2020-02-05 23:59 ==
LOC: BHOG 14:00
PROVIDERS: PCP Internal Medicine Infectious Disease; Referring Provider Psychiatry & Neurology Psychiatry; Visit Provider Psychiatry & Neurology Psychiatry
DX: F33.2 Major depressive disorder, recurrent severe without psychotic features (principal); F11.90 Opioid use, unspecified, uncomplicated
CPT/HCPCS: 90853; H0035

== ENCOUNTER → 2020-02-15 10:35 | Outpatient (CLI) | payer OTHER, SELFPAY ==
[2019-09-16 07:57] VITALS: BMI 22.3
[2020-02-15 11:27] LABS: Hematocrit 40.4 % (40-54); Hemoglobin 13.5 g/dL (13.0-16.5); Mean Corp Hgb Conc 33.4 g/dL (32-36); Mean Corpuscular Hgb 31.5 pg (27.0-32.0); Mean Corpuscular Volume 94.2 fL (80-94); Mean Platelet Vol. 8.8 fl (6.2-12.0); Platelet Count 393 K/mm3 (150-450); RBC Distribution Width CV 12.4 % (11.6-14.6); RBC Distribution Width SD 42.7 fl (35.1-43.9); Red Blood Count 4.29 M/mm3 (4.6-6.2); White Blood Count 5.5 K/mm3 (4.4-11.0)
[2020-02-15 12:02] LABS: Anion Gap 6 (5-15); BUN 13 mg/dL (7-18); BUN/Creat Ratio 13.1 RATIO (10-20); Calcium,Total 8.4 mg/dL (8.5-10.1); Chloride 104 mmol/L (98-107); Cholesterol 153 mg/dL (200); EST Glomerular Filtration Rate 89 mL/min (>60); Est Glom Filt Rate - Afr Amer 108 mL/min (>60); Glucose 93 mg/dL (74-106); High Density Lipoprotein 44 mg/dL; Potassium 4.2 mmol/L (3.5-5.1); Sodium Level 136 mmol/L (136-145); Triglycerides 49 mg/dL; Very Low Density Lipoprotein 10 mg/dL (5-40)
[2020-02-15 13:19] LABS: Hepatitis B Surface Antibody Non-Reactive
[2020-02-17 15:36] LABS: HIV-1 RNA by PCR, Quant. < 20 copies/mL (.)
[2020-02-18 11:06] LABS: Rapid Plasmin Reagin (RPR) NONREACTIVE (NONREACTIVE)
== END ==
PROVIDERS: PCP Internal Medicine Infectious Disease; Referring Provider Internal Medicine Infectious Disease; Visit Provider Internal Medicine Infectious Disease
DX: B20 Human immunodeficiency virus [HIV] disease (principal)
CPT/HCPCS: 36415; 80048; 80061; 81002; 85027; 86592; 86706; 87491; 87536; 87591

== ENCOUNTER → 2020-10-13 16:47 | Outpatient (CLI) | payer OTHER, SELFPAY ==
[2019-09-16 07:57] VITALS: BMI 22.3
[2020-10-13 17:22] LABS: Hematocrit 35.2 % (40-54); Hemoglobin 11.9 g/dL (13.0-16.5); Mean Corp Hgb Conc 33.8 g/dL (32-36); Mean Corpuscular Hgb 32.8 pg (27.0-32.0); Mean Platelet Vol. 8.5 fl (6.2-12.0); Platelet Count 357 K/mm3 (150-450); RBC Distribution Width CV 12.3 % (11.6-14.6); Red Blood Count 3.63 M/mm3 (4.6-6.2); White Blood Count 6.5 K/mm3 (4.4-11.0)
[2020-10-13 17:26] LABS: Color, Urine Yellow (Yellow); Glucose, Dipstick Normal (Normal); Ketone-Dipstick Negative (Negative); Leukocyte Esterase-Dipstick 25 /ul (Negative); Nitrite-Dipstick Negative (Negative); Occult Blood-Urine Negative /ul (Negative); Protein-Dipstick Negative (Negative); Specific Gravity, Urine 1.025 (1.002-1.030); Urine Bilirubin Dipstick Negative (Negative); Urine Clarity Clear (Clear); Urine Urobilinogen Normal (Normal)
[2020-10-13 18:15] LABS: Anion Gap 4 (5-15); BUN 25 mg/dL (7-18); BUN/Creat Ratio 24.3 RATIO (10-20); Calcium,Total 8.7 mg/dL (8.5-10.1); Chloride 106 mmol/L (98-107); Creatinine, Serum 1.03 mg/dL (0.70-1.30); EST Glomerular Filtration Rate 85 mL/min (>60); Est Glom Filt Rate - Afr Amer 103 mL/min (>60); Glucose 93 mg/dL (74-106); Potassium 3.8 mmol/L (3.5-5.1); Sodium Level 139 mmol/L (136-145)
[2020-10-13 20:52] LABS: Chlamydia Trachomatis by PCR Negative (Negative); Neisserai gonorrhoeae by PCR Negative (Negative); Probe Check PASS; Sample Adequacy Control PASS; Specimen Processing Control PASS
[2020-10-14 11:22] LABS: HIV - WCH Preliminary Reactive (Nonreactive); Syphilis Antibodies Reactive
[2020-10-15 20:07] LABS: Absolute CD4 Helper 594 /uL (359-1519); Basophils (Absolute) 0.1 x10E3/uL (0.0-0.2); Eosinophils 4 % (Not Estab.); Eosinophils (Absolute) 0.2 x10E3/uL (0.0-0.4); Hematocrit 36.6 % (37.5-51.0); Hemoglobin 12.3 g/dL (13.0-17.7); Immature Granulocytes 0 % (Not Estab.); Lymphs 28 % (Not Estab.); Lymphs (Absolute) 1.8 x10E3/uL (0.7-3.1); MCH 33.2 pg (26.6-33.0); MCHC 33.6 g/dL (31.5-35.7); MCV 99 fL (79-97); Monocytes 13 % (Not Estab.); Monocytes (Absolute) 0.8 x10E3/uL (0.1-0.9); Neutrophils 54 % (Not Estab.); Neutrophils (Absolute) 3.4 x10E3/uL (1.4-7.0); Platelets 403 x10E3/uL (150-450); RDW 12.2 % (11.6-15.4); WBC Count 6.3 x10E3/uL (3.4-10.8)
[2020-10-16 07:57] LABS: Immature Granulocytes Absolute 0 x10E3/uL (0.0-0.1)
== END ==
PROVIDERS: PCP Internal Medicine Infectious Disease; Referring Provider Internal Medicine Infectious Disease; Visit Provider Internal Medicine Infectious Disease
DX: B20 Human immunodeficiency virus [HIV] disease (principal)
CPT/HCPCS: 36415; 80048; 81002; 85027; 86361; 86703; 86780; 87491; 87591

== ENCOUNTER → 2020-10-19 13:00 | Outpatient (CLI) | payer OTHER, SELFPAY ==
[2019-09-16 07:57] VITALS: BMI 22.3
== END ==
PROVIDERS: PCP Internal Medicine Infectious Disease; Visit Provider Internal Medicine Infectious Disease
DX: B20 Human immunodeficiency virus [HIV] disease (principal)

== ENCOUNTER → 2021-04-12 16:00 | Outpatient (CLI) | payer OTHER, SELFPAY ==
[2021-04-12 17:42] LABS: Hematocrit 37.4 % (40-54); Hemoglobin 12.3 g/dL (13.0-16.5); Mean Corp Hgb Conc 32.9 g/dL (32-36); Mean Corpuscular Hgb 32.3 pg (27.0-32.0); Mean Corpuscular Volume 98.2 fL (80-94); Mean Platelet Vol. 8.7 fl (6.2-12.0); Platelet Count 447 K/mm3 (150-450); RBC Distribution Width CV 12.5 % (11.6-14.6); RBC Distribution Width SD 45.1 fl (35.1-43.9); Red Blood Count 3.81 M/mm3 (4.6-6.2); White Blood Count 8.3 K/mm3 (4.4-11.0)
[2021-04-12 18:13] LABS: Anion Gap 7 (5-15); BUN 18 mg/dL (7-18); BUN/Creat Ratio 19.7 RATIO (10-20); Calcium,Total 8.7 mg/dL (8.5-10.1); Chloride 108 mmol/L (98-107); Creatinine, Serum 0.91 mg/dL (0.70-1.30); EST Glomerular Filtration Rate 98 mL/min (>60); Est Glom Filt Rate - Afr Amer 119 mL/min (>60); Glucose 99 mg/dL (74-106); Potassium 3.9 mmol/L (3.5-5.1); Sodium Level 141 mmol/L (136-145)
[2021-04-13 09:28] LABS: Syphilis Antibodies Reactive
[2021-04-14 15:08] LABS: Absolute CD4 Helper 525 /uL (359-1519); Basophils (Absolute) 0.1 x10E3/uL (0.0-0.2); Eosinophils 3 % (Not Estab.); Eosinophils (Absolute) 0.3 x10E3/uL (0.0-0.4); Hematocrit 38.9 % (37.5-51.0); Hemoglobin 12.6 g/dL (13.0-17.7); Immature Granulocytes 0 % (Not Estab.); Lymphs 19 % (Not Estab.); Lymphs (Absolute) 1.6 x10E3/uL (0.7-3.1); MCHC 32.4 g/dL (31.5-35.7); MCV 99 fL (79-97); Monocytes 11 % (Not Estab.); Monocytes (Absolute) 0.9 x10E3/uL (0.1-0.9); Neutrophils 66 % (Not Estab.); Neutrophils (Absolute) 5.6 x10E3/uL (1.4-7.0); Percent % CD4 Pos. Lymph. 32.8 % (30.8-58.5); Platelets 481 x10E3/uL (150-450); RBC Count 3.94 x10E6/uL (4.14-5.80); RDW 12.1 % (11.6-15.4); WBC Count 8.4 x10E3/uL (3.4-10.8)
[2021-04-14 15:55] LABS: Immature Granulocytes Absolute 0 x10E3/uL (0.0-0.1)
[2021-04-21 15:36] LABS: HIV-1 RNA by PCR, Quant. < 20 copies/mL (.)
== END ==
PROVIDERS: PCP Internal Medicine Infectious Disease; Visit Provider Internal Medicine Infectious Disease
DX: B20 Human immunodeficiency virus [HIV] disease (principal)
CPT/HCPCS: 36415; 80048; 85027; 86361; 86780; 87536

== ENCOUNTER → 2021-04-18 14:09 | Outpatient (CLI) | payer OTHER, SELFPAY ==
[2021-04-18 14:27] VITALS: BP 120/79; PULSE 115; RESP 16; TEMP 35.8; O2SAT 97; BMI 21.6
[2021-04-18] MEDS: Penicillin G Benzathine 2.4 MU/4 ML Syringe IM (14:30)
[2021-04-18 14:55] VITALS: BP 71/42; PULSE 64
[2021-04-18 15:00] VITALS: BP 87/59; PULSE 93
[2021-04-18 15:05] VITALS: BP 112/62; PULSE 95
[2021-04-18 15:25] VITALS: BP 116/73; PULSE 89
== END ==
PROVIDERS: PCP Internal Medicine Infectious Disease; Referring Provider Internal Medicine Infectious Disease; Visit Provider Internal Medicine Infectious Disease
DX: A53.9 Syphilis, unspecified (principal)
CPT/HCPCS: 96372

== ENCOUNTER → 2021-11-13 | Outpatient (CLI) | payer OTHER, SELFPAY ==
[2021-11-13 17:58] LABS: Hematocrit 38.3 % (40-54); Hemoglobin 12.9 g/dL (13.0-16.5); Mean Corp Hgb Conc 33.7 g/dL (32-36); Mean Corpuscular Hgb 32.5 pg (27.0-32.0); Mean Corpuscular Volume 96.5 fL (80-94); Mean Platelet Vol. 8.4 fl (6.2-12.0); Platelet Count 413 K/mm3 (150-450); RBC Distribution Width SD 42.5 fl (35.1-43.9); Red Blood Count 3.97 M/mm3 (4.6-6.2); White Blood Count 7.1 K/mm3 (4.4-11.0)
[2021-11-13 18:47] LABS: Anion Gap 7 (5-15); BUN 16 mg/dL (7-18); BUN/Creat Ratio 14.7 RATIO (10-20); Calcium,Total 9.1 mg/dL (8.5-10.1); Chloride 105 mmol/L (98-107); Creatinine, Serum 1.09 mg/dL (0.70-1.30); EST Glomerular Filtration Rate 80 mL/min (>60); Est Glom Filt Rate - Afr Amer 96 mL/min (>60); Glucose 119 mg/dL (74-106); Potassium 3.7 mmol/L (3.5-5.1); Sodium Level 140 mmol/L (136-145)
[2021-11-13 20:16] LABS: Chlamydia Trachomatis by PCR Negative (Negative); Neisserai gonorrhoeae by PCR Negative (Negative); Probe Check PASS; Sample Adequacy Control PASS; Specimen Processing Control PASS
[2021-11-15 15:08] LABS: Absolute CD4 Helper 494 /uL (359-1519); Basophils (Absolute) 0.1 x10E3/uL (0.0-0.2); Eosinophils 2 % (Not Estab.); Eosinophils (Absolute) 0.2 x10E3/uL (0.0-0.4); Hematocrit 39.3 % (37.5-51.0); Hemoglobin 13.2 g/dL (13.0-17.7); Immature Granulocytes 1 % (Not Estab.); Lymphs 22 % (Not Estab.); Lymphs (Absolute) 1.5 x10E3/uL (0.7-3.1); MCH 32.8 pg (26.6-33.0); MCHC 33.6 g/dL (31.5-35.7); MCV 98 fL (79-97); Monocytes 10 % (Not Estab.); Monocytes (Absolute) 0.7 x10E3/uL (0.1-0.9); Neutrophils 64 % (Not Estab.); Neutrophils (Absolute) 4.5 x10E3/uL (1.4-7.0); Percent % CD4 Pos. Lymph. 32.9 % (30.8-58.5); Platelets 449 x10E3/uL (150-450); RBC Count 4.02 x10E6/uL (4.14-5.80); RDW 12.1 % (11.6-15.4); WBC Count 6.9 x10E3/uL (3.4-10.8)
[2021-11-15 17:16] LABS: Immature Granulocytes Absolute 0 x10E3/uL (0.0-0.1)
[2021-11-16 12:13] LABS: HIV-1 RNA by PCR, Quant. < 20 copies/mL (.)
== END | disposition home or self-care (01) ==
PROVIDERS: PCP Internal Medicine Infectious Disease; Referring Provider Internal Medicine Infectious Disease; Visit Provider Internal Medicine Infectious Disease
DX: B20 Human immunodeficiency virus [HIV] disease (principal)
CPT/HCPCS: 36415; 80048; 85027; 86361; 86780; 87491; 87536; 87591

== ENCOUNTER → 2022-06-18 | Outpatient (CLI) | payer OTHER, SELFPAY ==
[2022-06-18 12:06] LABS: Hematocrit 37.4 % (40-54); Hemoglobin 12.9 g/dL (13.0-16.5); Mean Corp Hgb Conc 34.5 g/dL (32-36); Mean Corpuscular Hgb 33.1 pg (27.0-32.0); Mean Corpuscular Volume 95.9 fL (80-94); Mean Platelet Vol. 8.5 fl (6.2-12.0); Platelet Count 435 K/mm3 (150-450); RBC Distribution Width CV 12.3 % (11.6-14.6); RBC Distribution Width SD 43.3 fl (35.1-43.9); White Blood Count 5.2 K/mm3 (4.4-11.0)
[2022-06-18 12:32] LABS: Anion Gap 2 (5-15); BUN 16 mg/dL (7-18); BUN/Creat Ratio 17.9 RATIO (10-20); Calcium,Total 8.7 mg/dL (8.5-10.1); Chloride 107 mmol/L (98-107); EST Glomerular Filtration Rate 99 mL/min (>60); Est Glom Filt Rate - Afr Amer 120 mL/min (>60); Glucose 107 mg/dL (74-106); Potassium 3.6 mmol/L (3.5-5.1); Sodium Level 140 mmol/L (136-145)
[2022-06-18 13:06] LABS: Hepatitis B Surface Antibody Non-Reactive
[2022-06-19 14:08] LABS: Absolute CD4 Helper 449 /uL (359-1519); Basophils (Absolute) 0.1 x10E3/uL (0.0-0.2); Eosinophils 3 % (Not Estab.); Eosinophils (Absolute) 0.2 x10E3/uL (0.0-0.4); Hematocrit 37.6 % (37.5-51.0); Hemoglobin 12.6 g/dL (13.0-17.7); Immature Granulocytes 0 % (Not Estab.); Lymphs 24 % (Not Estab.); Lymphs (Absolute) 1.3 x10E3/uL (0.7-3.1); MCH 31.9 pg (26.6-33.0); MCHC 33.5 g/dL (31.5-35.7); MCV 95 fL (79-97); Monocytes 17 % (Not Estab.); Monocytes (Absolute) 0.9 x10E3/uL (0.1-0.9); Neutrophils 55 % (Not Estab.); Neutrophils (Absolute) 2.9 x10E3/uL (1.4-7.0); Percent % CD4 Pos. Lymph. 34.5 % (30.8-58.5); Platelets 454 x10E3/uL (150-450); RBC Count 3.95 x10E6/uL (4.14-5.80); RDW 12.6 % (11.6-15.4); WBC Count 5.3 x10E3/uL (3.4-10.8)
[2022-06-21 10:26] LABS: Immature Granulocytes Absolute 0 x10E3/uL (0.0-0.1)
[2022-06-21 10:32] LABS: HIV-1 RNA by PCR, Quant. < 20 copies/mL (.)
== END | disposition home or self-care (01) ==
PROVIDERS: Referring Provider Internal Medicine Infectious Disease; Visit Provider Internal Medicine Infectious Disease
DX: B20 Human immunodeficiency virus [HIV] disease (principal)
CPT/HCPCS: 36415; 80048; 85027; 86361; 86706; 86780; 87536

== ENCOUNTER → 2024-09-02 | Outpatient (CLI) | payer OTHER, SELFPAY ==
[2024-09-02 16:33] LABS: Hematocrit 37.3 % (40-54); Hemoglobin 12.4 g/dL (13.0-16.5); Mean Corp Hgb Conc 33.2 g/dL (32-36); Mean Corpuscular Hgb 31.2 pg (27.0-32.0); Mean Corpuscular Volume 93.7 fL (80-94); Mean Platelet Vol. 8.6 fl (6.2-12.0); Platelet Count 342 K/mm3 (150-450); RBC Distribution Width CV 12.6 % (11.6-14.6); RBC Distribution Width SD 43.4 fl (35.1-43.9); Red Blood Count 3.98 M/mm3 (4.6-6.2); White Blood Count 9.2 K/mm3 (4.4-11.0)
[2024-09-02 17:27] LABS: Anion Gap 12 (5-15); BUN 18 mg/dL (4-19); BUN/Creat Ratio 18.4 RATIO (10-20); Calcium 9.1 mg/dL (7.6-11.0); Chloride 102 mmol/L (96-108); EST Glomerular Filtration Rate 100 (>60); Glucose 89 mg/dL (70-99); Potassium 3.9 mmol/L (3.3-5.1); Sodium Level 138 mmol/L (133-145)
[2024-09-02 17:57] LABS: Syphilis Antibodies Reactive (Nonreactive)
[2024-09-05 03:07] LABS: HIV-1 RNA by PCR, Quant. 20 copies/mL (.); LOG10 HIV-1 RNA 1.301 (.)
[2024-09-07 13:07] LABS: Percent % CD4 Pos. Lymph. 22.1 % (30.8-58.5)
== END | disposition home or self-care (01) ==
LOC: LAB 15:59
PROVIDERS: Referring Provider Internal Medicine Infectious Disease; Visit Provider Internal Medicine Infectious Disease
DX: B20 Human immunodeficiency virus [HIV] disease (principal)
CPT/HCPCS: 36415; 80048; 85027; 86361; 86780; 87491; 87536; 87591; 87661